=== PATIENT | female | born 1950 | race American Indian/Alaskan Native ===

== ENCOUNTER 2017-02-12 07:45 | Inpatient (IN) | payer MEDICARE ==
[2017-03-07 09:18] VITALS: BMI 32.1
[2017-03-07] MEDS ORDERED: Propofol 10 mg/ml Inj (20 ML) ONE (10:53)
[2017-03-07] MEDS ORDERED: Midazolam 2 MG/2 ML VIAL ONE (10:53)
[2017-03-07] MEDS ORDERED: ceFAZolin IV 2 gm in Dextrose 1 GM/50 ML BAG IVPB ONE (11:02)
[2017-03-07] MEDS ORDERED: Sodium Chloride 0.9% 60 ML IV ONE (11:02)
[2017-03-07] MEDS ORDERED: Bupivacaine Liposomal Inj 20 ml INFIL ONE (11:15)
[2017-03-07] MEDS ORDERED: Bacitracin 150,000 UNIT in Sodium Chloride 0.9% Irrig 3,000 ML IR SCH (11:15)
[2017-03-07] MEDS ORDERED: Lactated Ringer's 1,000 ML IV ONE ×2 (11:25→13:57)
[2017-03-07] MEDS ORDERED: Rocuronium 10 mg/ml (5 ml) ONE ×2 (12:26→13:12)
[2017-03-07 12:51] LABS: FLUID TYPE SYNOVIAL FLUID
[2017-03-07] MEDS ORDERED: Labetalol 25mg/5ml Syringe ONE ×2 (13:12→13:19)
[2017-03-07] MEDS ORDERED: Metoprolol 1 mg/ml Inj IVP ONE (13:12)
[2017-03-07] MEDS ORDERED: White Petrolatum/Mineral Oil Ophth Oint(3.5 gm) ONE (13:12)
[2017-03-07] MEDS ORDERED: Neostigmine Methylsulfate 3mg/3ml Syringe IV ONE (14:30)
[2017-03-07] MEDS: HYDROmorphone 0.5 mg/0.5 ml ISec IVP PRN ×4 (15:24→18:03)
[2017-03-07] MEDS ORDERED: Bupivacaine HCl 0.25% PF (10 ml) Inj ONE (15:31)
--- NOTE | 2017-03-07 15:37 | PCM.SURG1 ---
Surgeon's Initial Post Op Note - Surgeon's Notes Surgeon: Adam Payton MD Service Worker Helper: Arlene Puga PA-C Type of Anesthesia: General Endo, Block Regional Pre-Operative Diagnosis: Right knee. #1 DJD. #2 flexion contracture. #3 synovitis. #4 multiple LB's Operative Findings: Right knee. #1 DJD. #2 flexion contracture. #3 synovitis. #4 multiple LB's Post-Operative Diagnosis: Right knee. #1 DJD. #2 flexion contracture. #3 synovitis. #4 multiple LB's Operation Performed: Right knee Open. #1 Total knee arthroplasty. #2 removal LB's. #3 synovectomy Specimen/Specimens Removed: Specimen= ciro cuts and LB. Complications= none. Tourniquet time= 108 min. Implants= Medacta GMK cemented total knee system: size 4 femur/ size 4 tibia/ 17mm PS poly/ size 1 patella poly button Estimated Blood Loss: EBL {In ML}: 100 Blood Products Given: N/A Drains Used: Hemovac Post-Op Condition: Good Date of Surgery/Procedure: 03/07/17 Time of Surgery/Procedure: 15:38
[2017-03-07 15:43] LABS: CRYSTAL TYPE CalciumPyrophosphate
--- NOTE | 2017-03-07 15:54 | PCM.ANESB7 ---
Adductor Canal Block - Adductor Canal Block Date of Procedure: 03/07/17 Anesthiologist: Lyndon Pre-Procedure Diagnosis: s/p right total knee arthroplasty Post-Procedure Diagnosis: same Procedure Performed: Adductor Canal Block Right - Procedure Adductor Canal Block: The procedure was explained to the patient that it is for the post-operative pain management. Consent was obtained after a thorough discussion with the patient regarding the benefits and possible complications of local anesthetic adductor canal block of the femoral nerve. Standard monitors were applied to the patient. Time-out was held with the PACU nurse to confirm the appropriate block. The patient was placed in supine position with and the operative leg was flexed slightly at the knee and externally rotated as needed, and was kept anatomically stable. The mid-thigh of the right lower extremity was exposed. The ultrasound transducer was then applied transversely along the medial aspect , about midway down the thigh and the femoral artery and vein were identified in appropriate relation with the sartorius muscle. At this time, the femoral nerve was visualized lateral to the femoral artery within the canal. After thorough identification, this area area was prepped with Chloroprep solution. At this point, a #22 gauge Stimuplex 4-inch needle was inserted in-plane in a [id number] orientation, and advanced toward the femoral nerve. Advancement was performed carefully under direct ultrasound visualization. After negative aspiration, 5cc of 0.25% bupivacaine was injected and this was followed with 25 cc of 0.25% Bupivacaine. Negative intermittent aspiration. Under ultrasound guidance the local anesthetics were observed spreading around the femoral nerve. The needle was removed intact and sterile dressing was applied. The patient had stable vital signs, was conscious and in no apparent distress. The patient tolerated the femoral nerve block well with stable vital signs
--- NOTE | 2017-03-07 16:55 | RAD ---
PROCEDURE: Right Knee Radiographs. HISTORY: s/p R total knee replacement COMPARISON: None. FINDINGS: BONES: No acute fracture. JOINTS: Status post right total knee replacement. Surgical drain anteriorly. Anterior soft tissue changes as expected. JOINT EFFUSION: None. OTHER FINDINGS: None. IMPRESSION: Right total knee replacement.
[2017-03-07] MEDS ORDERED: HYDROmorphone 0.5 mg/0.5 ml ISec ONE (18:43)
[2017-03-07] MEDS ORDERED: Dextrose 5%/0.45% NS 1,000 ML IV ONE (19:30)
[2017-03-07] MEDS: Insulin Detemir 100 units/ml Vial (Levemir) SC SCH (22:50)
[2017-03-07] MEDS: Oxycodone/Acetaminophen 5/325 mg Tab PO PRN (22:51)
[2017-03-07] MEDS: Metoprolol Succinate 50 mg XL Tab PO SCH (22:51)
[2017-03-08] MEDS: Oxycodone/Acetaminophen 5/325 mg Tab PO PRN (04:25)
[2017-03-08] MEDS: Dextrose 5%/0.45% NS 1,000 ML IV SCH ×2 (04:31→05:43)
--- NOTE | 2017-03-08 06:04 | OP ---
PROCEDURE DATE: 03/07/2017 PREOPERATIVE DIAGNOSES: Right knee: 1. Degenerative joint disease. 2. 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 3. Synovitis. 4. Multiple loose bodies. 5. Significant loss of range of motion (10 degree to 90 degree flexion arc). POSTOPERATIVE DIAGNOSES: Right knee: 1. Degenerative joint disease. 2. 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 3. Synovitis. 4. Multiple loose bodies. 5. Significant loss of range of motion (10 degree to 90 degree flexion arc). 6. Lateral retinacular patellar contracture. PROCEDURE: Right knee: 1. Total knee arthroplasty. 2. Open removal of loose bodies. 3. Open synovectomy. 4. Open lateral retinacular release. SURGEON: Adam Payton MD. MUD GRINDER: Arlene Puga PA-C. JUSTIFICATION FOR MUD GRINDER: Arlene Puga is a certified physician bookkeeping assistant who skilled surgical services, was an absolute necessity for successful completion of the procedure. He provided skilled surgical assistance with positioning of the patient, positioning of extremity, management of the surgical wynn, retraction of the neurovascular structures, preparation of distal femur and proximal tibia bone surfaces, preparation of patellar bone surface, placement of trial hardware, placement of proper cement technique and placement of final implant hardware including distal femur cemented, proximal tibia cemented, patellar button cemented, and the poly spacer, wound closure, placement and fitting of knee immobilizer. Arlene Puga was present for the entire case and was an absolute necessity for successful completion of the procedure. TYPE OF ANESTHESIA: General endotracheal anesthesia with a postop regional nerve block placement by anesthesia staff in PACU. SPECIMEN: As per hospital protocol, the bony cuts and loose body were sent to the pathology. COMPLICATIONS: None. TOURNIQUET TIME: 108 minutes. IMPLANTS: Medacta, GMK cemented total knee system consisting of size 4 cemented femur/size 4 cemented tibia component/17 mm posterior stabilized polyethylene spacer/size 1 patellar polyethylene cemented button. ESTIMATED BLOOD LOSS: 100 mL. DRAINS: Hemovac drain x1. DISPOSITION: The patient was extubated, transferred to PACU in stable condition and tolerated procedure well. INDICATIONS OF SURGERY: The patient is a 66-year-old female with a past medical history significant for hypertension, hypercholesterolemia, diabetes, coronary artery disease with a history of three vessel CABG in September 2013, presents to the office for the first time under my care on 12/27/2015 with right much worse than left knee pain for many years. She stated that over the past two years, the knee pain has begun progressively worse and she has had multiple episodes of buckling and falling with pain worse at the medial joint line of both knees, but the right knee was significantly worse than the left knee. The right knee was consistently rated between 7 to 9/10 pain. X-rays taken in the office show that she had significant DJD with complete loss of the medial joint line on both knees with bone on bone contact of the medial femoral condyle with the medial tibial plateau. She also had significant osteophytes and multiple loose bodies. Examination in the office revealed that she had at that point in time a 5-degree flexion contracture as well as inability to flex the knee past 90 degrees. Significant tenderness to palpation at the medial joint line with a positive Apley and William with no significant instability. There was also significant crepitans throughout range of motion. We started conservative treatment at that point in time, which included multiple rounds of physical therapy, compound antiinflammatory pain cream, Mobic antiinflammatory medication, Tylenol #3 for severe pain, bracing, multiple rounds of cortisone injection including bilateral knee cortisone mixture injections on 12/27/2015, 08/13/2016, 11/28/2016, with complete resolution of pain in both knees after the administration of the cortisone mixture injection from the local anesthetic. She also underwent a completion of hyaluronic acid injection series two times to bilateral knees completed in 01/30/2016, the first round and the second round of four injections once a week for four weeks of Orthovisc. Hyaluronic acid were completed on 09/24/2016 with great improvement in bilateral knee pain. We had significant improvement in her left knee pain that was markedly improved with conservative treatment and now rated 2/10. The patient also had significant weight loss over that period of time. The right knee continued to ail her and she was starting to state that she was having difficulty with ADLs and basic ambulation. She will have any pain with any activity and any flexion past 90 degrees or an attempt at full extension. She stated that overall after the hyaluronic acid injections wore off and the cortisone injections would wear off, she will return to the pretreatment level of pain in her right knee. She stated that physical therapy made her pain worse and she was having difficulty with pretty much any activity or any ambulation as she was limping and had the 5 degree flexion contracture. The flexion contracture did progress and worsened and now became a 10 degree flexion contracture with range of motion limited from 10 degrees to 90 degrees flexion arc. The left knee also developed a 5 degree flexion contracture. Finally, after failing one year of conservative treatment under my care, although we had multiple discussions about the benefits of a total knee replacement during her treatment, she finally accepted to undergo the treatment at her December 2016 visit. She was indicated for right knee total knee arthroplasty. The risks, benefits, and alternatives of the procedure was discussed at length with the patient, but the risks include not limited to infection, neurovascular damage, need for revision surgery, periprosthetic fracture, failure of implants and failure of polyethylene spacer, development of chronic pain and disability, development of blood clots including DVT and PE, need for further surgery, inability to return to presurgical level of activity, anesthesia reactions including , cardiopulmonary perioperative compromise. After answering all of her questions, she stated that she understood the risks and wish to proceed with surgery. The plan was to undergo a right knee total knee arthroplasty and after six months of successful recovery, we would consider undergoing a left knee total knee arthroplasty if the pain was severe and develop. We also discussed that there would be an apparent leg length discrepancy as the left knee had a 5 degree flexion contracture that was progressively worsening and the right knee postoperatively would be able to obtain full extension and she may feel that there is an apparent leg length discrepancy, which we can treat with a heel insert or a footwear insert to accommodate postoperatively between the two knee replacements. She was referred to a primary care physician, Dr. Karl Ratliff for PAT and medical clearance and the procedure was scheduled for 03/07/2017. DESCRIPTION OF PROCEDURE: The patient was identified in the preoperative holding area and the right knee was marked for surgery. Once again as described above; the risks, benefits, and alternatives of the procedure were discussed at length with the patient and informed consent was obtained. After brief discussion with anesthesia staff, perioperative IV antibiotics in the form of 2 g of Ancef were administered and the patient was taken to the operating room and placed on well-padded operating table for all bony prominence , superficial neurovascular structures well-padded. An initial time-out was done with the surgeon, anesthesia staff, and OR staff and all are in agreement with the patient, procedure to be done, and extremity to be operated on. General anesthesia was administered without difficulty or complication. Examination under anesthesia was then carried out. EXAMINATION UNDER ANESTHESIA: Right knee with significant crepitans throughout range of motion, range of motion is severely limited from 10 degrees to 90 degree flexion arc with a 10 degree flexion contracture. No significant instability with negative anterior drawer, negative posterior drawer, negative Ashley, negative reverse locking, negative pivot shift, negative opening to medial and lateral joint at 0 to 30 degrees of varus and valgus stress. CONTINUATION OF PROCEDURE: The right lower extremity was prepped and draped in the standard sterile fashion after a tourniquet was placed high on the right thigh. A final time-out was done with the surgeon, anesthesia staff, and OR staff, and all are in agreement with the patient, procedure to be done and extremity to be operated on. The right lower extremity was then prepped and draped in a standard sterile fashion. A medial parapatellar approach was then placed for this procedure. The limb was exsanguinated and the tourniquet was then inflated to 300 mmHg for a total tourniquet time of 108 minutes. A medial parapatellar approach was carried out with incision through a skin down subcutaneous tissue, down to the level of the retinaculum, well maintaining good hemostasis. The incision started at 3 fingerbreadths above the level of the superior pole of the patellar and extended down to the tibial tuberosity with slight medial placement to avoid kneeling pain after recovery. Once the medial retinaculum was identified and the quadriceps tendon and patellar tendon were identified and developed, a medial parapatellar arthrotomy was then carried out starting at the medial aspect of the quadriceps tendon while going in line with the quadriceps fibers down to the superior pole of the patella around the medial aspect of the patella down to the medial aspect of the patellar tendon to the level of the tibial tuberosity. This explores the underlying joint and bloody synovial fluid was expressed from the joint. There was low suspicion of an active infection, but to be safe a cell count and gram-stain was sent as a stat study. The cell count and gram-stain both returned negative for infection prior to placement of implants. We continue with the procedure performing an extensive synovectomy as was appearance from the bloody synovial fluid, there was significant anterior hypertrophic synovitis throughout the anterior aspect of the knee extending to the medial and lateral gutters in the suprapatellar pouch with a hypertrophic fat-pad with significant inflammation as well. With the use of the Bovie, we will maintain good hemostasis and extensive open synovectomy was carried out allow exposure for the preparation of the distal femur patella and proximal tibia. Decision was made to perform the patella first as it had extensive osteophytes and there was a significant deformity to the patella as well. With the use of the Standard [employer] patellar guide, a 20 mm of bone stalk were retained as the patellar cut was carried out as the guide was secured into position. Chamfer was used and indeed globally there was 20 mm of bone stalk left at the patella throughout all measurements at the lateral and medial aspect, superior and inferior aspects as well. It was noted at that point in time,it was thought that there was a lateral retinacular contracture, but this would be addressed later. Attention was then turned towards preparation of the distal femur with the retractors placed in position. The contact points for the brad custom cutting blocks were developed as per the 3D model and the custom cutting block was then pinned into position and the distal femoral cut was carried out. The 5 to 10 degree flexion contracture was brought into the custom cutting block, but the plan was if not to have despite after placement of the trial that we would revise the distal femoral cut to allow for full extension. Once the distal cut was made, the 4-in-1 guide was then placed with a 3 degree of external rotation down into the guide. The anterior cuts were made, the posterior cuts were made followed by the anterior and posterior chamfer cuts. The 4-in-1 guide was removed and a trial size 4 implant was impacted into position and found to fit perfectly. The trial implant was removed and attention was then turned towards the proximal tibia preparation. The custom tibial cutting guide was secured into position after the contact points were debrided of overlying cartilage. The cutting guide was pinned into position and alignment was checked and was just found to be in neutral alignment to the first webspace. The proximal tibial cut was carried out successfully as planned. The proximal tibia preparation was then completed with the wedge osteotome and the proximal reamer. Trial was then carried out with a size 4 tibia with a 14 mm poly spacer and a size 4 distal femur all in position with good soft tissue balancing achieved and full range of motion obtained. The trial implants were removed and care was taken to remove the posterior osteophytes as well as the multiple loose bodies that were found in the posterior capsule. Once this was done to satisfaction and the multiple loose bodies were removed as well as the posterior osteophytes, copious irrigation was carried out and the final patellar preparation was carried out with placement of the pig holes and the final distal femur preparation was carried out for placement of the box for the posterior stabilized polyethylene spacer and posterior stabilized distal femur. Once this was all done to satisfaction, we were happy with the soft tissue balancing as well as the bony cuts and all are preparations. The [employer] [place] cement was then prepared. The cement was then mixed after the bony surfaces were copiously irrigated and padded dry. Proper cement technique was then utilized and the attention was turned towards cementing the proximal tibia first. The proximal tibia implant was then cemented and impacted into good position. Attention was then turned towards cementing the distal femur and a size 4 distal femur was impacted and cemented into proper position. All excess cement had been removed from stack the implants. Attention was then turned towards placement of the trial poly which was placed into position and axial load was placed on the knee in full extension. The patellar button was then cemented into position and compressed with the Standard [employer]a patellar handle, secured into position. Axial compression was then applied and all the excess cement fragments were removed and the knee was copiously irrigated until the cement hardened. The tourniquet was then deflated with a total tourniquet time of 108 minutes and good hemostasis was achieved. Local anesthetic was placed throughout the posterior capsule and quadriceps and all the surrounding soft tissue medially, laterally, superiorly and inferiorly. Once the local anesthetic was placed, especially at the posterior capsule attention was then turned towards placing and selecting the final polyethylene spacer. A 70 mm trial followed by the full extension and good stability throughout full range of motion. A final 17 mm posterior stabilized polyethylene spacer was then secured into the position and the knee was tested again and found to be stable throughout arc of range of motion with full extension and flexion achieved. As stated before there was something concern about the lateral retinaculum of the patella being slightly contracted and an open lateral retinacular release was carried out, which returned stability to the patella throughout arc of range of motion without any lateral subluxation. Once this was carried out to satisfaction, copious irrigation was carried out and good hemostasis was achieved and a Hemovac drain was placed. The medial parapatellar arthrotomy was then reapproximated and secured with alternating #2 Fiber wire suture and #1 Vicryl suture at the quadriceps tendon, the medial retinaculum and the patellar tendon. Once the fascial closure was complete, subcutaneous tissue was reapproximated with 2-0 Vicryl suture followed by love for skin. Sterile dressings were applied and layer sterile cast padding was placed from the toes up to the superior thigh followed by last compressive Jules wrap from the toes up to the superior thigh. The knee was then fitted and placed in a knee immobilizer and the Hemovac was secured. The patient was then extubated and transferred to PACU in stable condition and tolerated the procedure well. DISPOSITION: The patient will remain as an inpatient until she is medically stable for discharge to rehab or home with services. She will work with physical therapy, case management, and social work job titles to determine whether it is optimal for her. She will be weightbearing as tolerated to the right lower extremity with no restrictions. She will work with physical therapy to work on range of motion strengthening and stretching and initially ambulate with the knee immobilizer when up and walking around. She will receive adequate pain control. She will be restarted on her Plavix, which she stopped for one week after consulting her duplicate maker and medical doctor prior to surgery. She will be on Lovenox 40 mg once daily as DVT prophylaxis starting postoperative day #1. I will monitor her progress as an inpatient and we will determine the best course of action. Once she is discharged from the hospital, she will follow up in the office at [facility] within one week. Adam Payton MD
[2017-03-08] MEDS: (Novolog Mix 70/30) Insulin Aspart/Insulin Aspar 100 units/ml SC SCH ×4 (08:23→17:21)
[2017-03-08 08:55] LABS: CHLORIDE 103 mmol/L (98-107); POTASSIUM 3.7 mmol/L (3.6-5.2); SODIUM 137 mmol/L (132-148)
[2017-03-08 08:58] LABS: BASO % 0.4 % (0.0-2.0); BLOOD UREA NITROGEN 6 mg/dL (7-17); CALCIUM 8.4 mg/dl (8.6-10.4); CARBON DIOXIDE 24 mmol/L (22-30); EOS % 0.3 % (0.0-4.0); GFR AFRICAN-AMERICAN > 60; GLUCOSE,RANDOM 187 mg/dL (65-105); HEMATOCRIT 29.9 % (34.0-47.0); LYMPH # 2.4 K/uL (1.0-4.3); MEAN CELL VOLUME 97.3 fL (81.0-99.0); MEAN CORPUSCULAR HEMOGLOBIN 32.6 pg (27.0-31.0); MEAN CORPUSCULAR HGB CONC 33.5 g/dL (33.0-37.0); MEAN PLATELET VOLUME 11.6 fL (7.2-11.7); MONO # 1.2 K/uL (0.0-0.8); MONO % 10.2 % (0.0-10.0); RED CELL DISTRIBUTION WIDTH 13.7 % (11.5-14.5); WHITE BLOOD COUNT 11.9 K/uL (4.8-10.8)
--- NOTE | 2017-03-08 09:54 | CP.PCM.CON ---
History of Present Illness - History of Present Illness History of Present Illness: Patient seen/examined. full consult to follow. patient has a history of CABG 2013 at [facility] [place] routine cardiology follow up is Dr. Henry. She is doing well post op. will continue current management. Past Patient History - Past Medical History & Family History Past Medical History?: Yes - Past Social History Smoking Status: Light Smoker < 10 Cigarettes Daily - CARDIAC Hx Cardiac Disorders: Yes Hx Hypercholesterolemia: Yes Hx Hypertension: Yes - PULMONARY Hx Respiratory Disorders: No - NEUROLOGICAL Hx Neurological Disorder: No - HEENT Hx HEENT Problems: Yes Hx Cataracts: Yes - RENAL Hx Chronic Kidney Disease: No - ENDOCRINE/METABOLIC Hx Diabetes Mellitus Type 2: Yes - HEMATOLOGICAL/ONCOLOGICAL Hx Blood Disorders: No - INTEGUMENTARY Hx Dermatological Problems: No - MUSCULOSKELETAL/RHEUMATOLOGICAL Hx Arthritis: Yes - GASTROINTESTINAL Hx Gastrointestinal Disorders: Yes Hx Hemorrhoids: Yes - GENITOURINARY/GYNECOLOGICAL Hx Genitourinary Disorders: No - PSYCHIATRIC Hx Psychophysiologic Disorder: No Hx Substance Use: No - SURGICAL HISTORY Hx Surgeries: Yes Hx Coronary Artery Bypass Graft: Yes Hx Open Heart Surgery: Yes Other/Comment: LEFT KNEE CYST REMOVED, RIGHT THIGH BOIL I & D - ANESTHESIA Hx Anesthesia: Yes Hx Anesthesia Reactions: No Hx Malignant Hyperthermia: No Has any member of the family had a problem w/ anesthesia?: No Meds Allergies/Adverse Reactions: Allergies Allergy/AdvReac Type Severity Reaction Status Date / Time No Known Allergies Allergy Verified 12/13/14 11:13 - Medications Medications: Current Medications Clopidogrel Bisulfate (Plavix) 75 mg PO DAILY [facility] Enoxaparin Sodium (Lovenox) 40 mg SC DAILY [facility] Dextrose/Sodium Chloride (Dextrose 5%/0.45% Ns 1000 Ml) 1,000 mls @ 75 mls/hr IV .[id number] [facility] Last Admin: 03/08/17 05:43 Dose: Not Given Insulin Aspart (Novolog Mix 70/30 (70/30 Units/Ml)) 10 units SC TID [facility] Last Admin: 03/08/17 08:23 Dose: Not Given Insulin Detemir (Levemir) 15 unit SC HS [facility] Last Admin: 03/07/17 22:50 Dose: 15 unit Metformin HCl (Glucophage) 1,000 mg PO BID [facility] Last Admin: 03/07/17 20:00 Dose: Not Given Metoprolol Succinate (Toprol Xl) 50 mg PO DAILY [facility] Last Admin: 03/07/17 22:51 Dose: 50 mg Ondansetron HCl (Zofran Inj) 4 mg IVP Q6 PRN PRN Reason: Nausea/Vomiting Oxycodone/Acetaminophen (Percocet 5/325 Mg Tab) 2 tab PO Q4H PRN PRN Reason: Pain, severe (8-10) Stop: 03/10/17 12:07 Last Admin: 03/08/17 04:25 Dose: 2 tab Results - Vital Signs Recent Vital Signs: Last Vital Signs Temp 98.5 F 03/08/17 08:00 Pulse 106 H 03/08/17 08:00 Resp 20 03/08/17 08:00 BP 144/79 03/08/17 08:00 Pulse Ox 98 03/08/17 08:00 - Labs Result Diagrams: 03/08/17 08:34 03/08/17 08:34 Labs: Laboratory Results - last 24 hr 03/07/17 03/07/17 03/07/17 08:49 12:49 14:47 WBC RBC Hgb Hct MCV MCH MCHC RDW Plt Count MPV Neut % (Auto) Lymph % (Auto) [place] % (Auto) Eos % (Auto) Baso % (Auto) Neut # Lymph # [place] # Eos # Baso # PT INR APTT Sodium Potassium Chloride Carbon Dioxide Anion Gap BUN Creatinine Est GFR ( Amer) Est GFR (Non-Af Amer) POC Glucose (mg/dL) Random Glucose Calcium Fluid Type Synovial fluid Fluid Crystals Positive H Synovial WBC 5679.0 H Synovial RBC 594653.0 H Synovial Neutrophils 51.0 H Synovial Lymphocytes 46.0 H Synov Monos/Macrophage 3 H Synovial Crystal Type Calciumpyrophosphate Synovial Fluid Comment TEST NOT PERFORMED Antibody Screen Negative 03/07/17 03/07/17 03/08/17 16:57 20:55 06:20 WBC RBC Hgb Hct MCV MCH MCHC RDW Plt Count MPV Neut % (Auto) Lymph % (Auto) [place] % (Auto) Eos % (Auto) Baso % (Auto) Neut # Lymph # [place] # Eos # Baso # PT INR APTT Sodium Potassium Chloride Carbon Dioxide Anion Gap BUN Creatinine Est GFR ( Amer) Est GFR (Non-Af Amer) POC Glucose (mg/dL) 296 H 254 H 227 H Random Glucose Calcium Fluid Type Fluid Crystals Synovial WBC Synovial RBC Synovial Neutrophils Synovial Lymphocytes Synov Monos/Macrophage Synovial Crystal Type Synovial Fluid Comment Antibody Screen 03/08/17 03/08/17 03/08/17 08:34 08:34 08:34 WBC 11.9 H RBC 3.07 L Hgb 10.0 L Hct 29.9 L MCV 97.3 MCH 32.6 H MCHC 33.5 RDW 13.7 Plt Count 116 L MPV 11.6 Neut % (Auto) 69.1 Lymph % (Auto) 20.0 [place] % (Auto) 10.2 H Eos % (Auto) 0.3 Baso % (Auto) 0.4 Neut # 8.2 H Lymph # 2.4 [place] # 1.2 H Eos # 0.0 Baso # 0.0 PT 11.8 INR 1.0 APTT 25 Sodium 137 Potassium 3.7 Chloride 103 Carbon Dioxide 24 Anion Gap 14 BUN 6 L Creatinine 0.6 L Est GFR ( Amer) > 60 Est GFR (Non-Af Amer) > 60 POC Glucose (mg/dL) Random Glucose 187 H Calcium 8.4 L Fluid Type Fluid Crystals Synovial WBC Synovial RBC Synovial Neutrophils Synovial Lymphocytes Synov Monos/Macrophage Synovial Crystal Type Synovial Fluid Comment Antibody Screen
--- NOTE | 2017-03-08 09:55 | CP.PCM.CON ---
History of Present Illness - History of Present Illness History of Present Illness: I was asked to see patient by Dr. Chaparro Marquez. Patient is a 66 year old female with PMH HTN, CAD s/p CABG, hypercholesterolemia who is s/p TKR. Patient had [place] [facility] [place], and has routine follow up with Dr. Darrell Henry. The patient had preoperative cardiovascular evaluation with Dr. Henry, and has no current angina. The patient underwent successful TKR. She denies dyspnea. Review of Systems - Constitutional Constitutional: absent: As Per HPI, Anorexia, Chills, Daytime Sleepiness, Excessive Sweating, Fatigue, Fever, Frequent Falls, Headache, Increased Appetite , Lethargy, Malaise, Night Sweats, Snoring, Sleep Apnea, Weight Gain, Weight Loss, Weakness, Other - EENT Eyes: absent: As Per HPI, Blind Spots, Blurred Vision, Change in Vision, Decreased Night Vision, Diplopia, Discharge, Dry Eye, Exophthalmos, Floaters, Irritation, Itchy Eyes, Loss of Peripheral Vision, Pain, Photophobia, Requires Corrective Lenses, Sees Flashes, Spots in Vision, Tunnel Vision, Other Visual Disturbances, Loss of Vision, Other Ears: absent: As Per HPI, Decreased Hearing, Ear Discharge, Ear Pain, Tinnitus, Abnormal Hearing, Disequilibrium, Dizziness, Other Nose/Mouth/Throat: absent: As Per HPI, Epistaxis, Nasal Congestion, Nasal Discharge, Nasal Obstruction, Nasal Trauma, Nose Pain, Post Nasal Drip, Sinus Pain, Sinus Pressure, Bleeding Gums, Change in Voice, Dental Pain, Dry Mouth, Dysphagia, Halitosis, Hoarsness, Lip Swelling, Mouth Lesions, Mouth Pain, Odynophagia, Sore Throat, Throat Swelling, Tongue Swelling, Facial Pain, Neck Pain, Neck Mass, Other - Cardiovascular Cardiovascular: absent: As Per HPI, Acrocyanosis, Chest Pain, Chest Pain at Rest , Chest Pain with Activity, Claudication, Diaphoresis, Dyspnea, Dyspnea on Exertion, Edema, Irregular Heart Rhythm, Pain Radiating to Arm/Neck/Jaw, Leg Edema, Leg Ulcers, Lightheadedness, Orthopnea, Palpitations, Paroxysmal Nocturnal Dyspnea, Pedal Edema, Radiating Pain, Rapid Heart Rate, Slow Heart Rate, Syncope, Other - Respiratory Respiratory: absent: As Per HPI, Cough, Dyspnea, Hemoptysis, Dyspnea on Exertion , Wheezing, Snoring, Stridor, Pain on Inspiration, Chest Congestion, Excessive Mucous Production, Change in Mucous Color, Pain with Coughing, Other - Gastrointestinal Gastrointestinal: absent: As Per HPI, Abdominal Pain, Belching, Bloating, Change in Bowel Habits, Change in Stool Character, Coffee Ground Emesis, Constipation, Cramping, Diarrhea, Dyspepsia, Dysphagia, Early Satiety, Excessive Flatus, Fecal Incontinence, Heartburn, Hematemesis, Hematochezia, Loose Stools, Melena, Nausea, Odynophagia, Temesmus, Vomiting, Other - Genitourinary Genitourinary: absent: As Per HPI, Change in Urinary Stream, Difficulty Urinating, Dysuria, Flank Pain, Hematuria, Pyuria, Nocturia, Urinary Incontinence, Urinary Frequency, Urinary Hesitance, Urinary Urgency, Voiding Freq/Small Amts, Freq UTI, Hx Renal/Bladder Calculi, Hx /Renal Surgery, Bladder Distension, Other - Musculoskeletal Musculoskeletal: Radiating Pain into Limb - Integumentary Integumentary: absent: As Per HPI, Acne, Alopecia, Bleeding Lesions, Change in Hair, Change in Nails, Change in Pigmentation, Changing Lesions, Dry Skin, Erythema, Furuncle, Hirsutism, Lesions, New Lesions, Non-Healing Lesions, Photosensitivity, Pruritus, Rash, Skin Pain, Skin Ulcer, Sores, Striae, Swelling , Unusual Bruising, Wounds, Jaundice, Other - Neurological Neurological: absent: As Per HPI, Abnormal Gait, Abnormal Hearing, Abnormal Movements, Abnormal Speech, Behavioral Changes, Burning Sensations, Confusion, Convulsions, Disequilibrium, Dizziness, Numbness, Focal Weakness, Frequent Falls , Headaches, Lack of Coordination, Loss of Vision, Memory Loss, Paresthesias, Radicular Pain, Restless Legs, Sensory Deficit, Syncope, Tingling, Tremor, Vertigo, Weakness, Other Visual Disturbances, Other - Psychiatric Psychiatric: absent: As Per HPI, Abnormal Sleep Pattern, Anhedonia, Anxiety, Auditory Hallucinations, Behavioral Changes, Change in Appetite, Change in Libido, Confusion, Depression, Difficulty Concentrating, Hallucinations, Homicidal Ideation, Hopelessness, Irritability, Memory Loss, Mood Swings, Panic Attacks, Paranoia, Suicidal Ideation, Visual Hallucinations, Tactile Hallucinations, Other - Endocrine Endocrine: absent: As Per HPI, Change in Body Appearance, Change in Libido, Cold Intolorance, Deepening of Voice, Excessive Sweating, Fatigue, Flushing, Heat Intolorance, Increase in Ring/Shoe/Hat Size, Palpitations, Polydipsia, Polyphagia, Polyuria, Other - Hematologic/Lymphatic Hematologic: absent: As Per HPI, Easy Bleeding, Easy Bruising, Lymphadenopathy, Other Past Patient History - Past Medical History & Family History Past Medical History?: Yes - Past Social History Smoking Status: Light Smoker < 10 Cigarettes Daily - CARDIAC Hx Cardiac Disorders: Yes Hx Hypercholesterolemia: Yes Hx Hypertension: Yes - PULMONARY Hx Respiratory Disorders: No - NEUROLOGICAL Hx Neurological Disorder: No - HEENT Hx HEENT Problems: Yes Hx Cataracts: Yes - RENAL Hx Chronic Kidney Disease: No - ENDOCRINE/METABOLIC Hx Diabetes Mellitus Type 2: Yes - HEMATOLOGICAL/ONCOLOGICAL Hx Blood Disorders: No - INTEGUMENTARY Hx Dermatological Problems: No - MUSCULOSKELETAL/RHEUMATOLOGICAL Hx Arthritis: Yes - GASTROINTESTINAL Hx Gastrointestinal Disorders: Yes Hx Hemorrhoids: Yes - GENITOURINARY/GYNECOLOGICAL Hx Genitourinary Disorders: No - PSYCHIATRIC Hx Psychophysiologic Disorder: No Hx Substance Use: No - SURGICAL HISTORY Hx Surgeries: Yes Hx Coronary Artery Bypass Graft: Yes Hx Open Heart Surgery: Yes Other/Comment: LEFT KNEE CYST REMOVED, RIGHT THIGH BOIL I & D - ANESTHESIA Hx Anesthesia: Yes Hx Anesthesia Reactions: No Hx Malignant Hyperthermia: No Has any member of the family had a problem w/ anesthesia?: No Meds Allergies/Adverse Reactions: Allergies Allergy/AdvReac Type Severity Reaction Status Date / Time No Known Allergies Allergy Verified 12/13/14 11:13 - Medications Medications: Current Medications Clopidogrel Bisulfate (Plavix) 75 mg PO DAILY [facility] Enoxaparin Sodium (Lovenox) 40 mg SC DAILY [facility] Dextrose/Sodium Chloride (Dextrose 5%/0.45% Ns 1000 Ml) 1,000 mls @ 75 mls/hr IV .[id number] [facility] Last Admin: 03/08/17 05:43 Dose: Not Given Insulin Aspart (Novolog Mix 70/30 (70/30 Units/Ml)) 10 units SC TID [facility] Last Admin: 03/08/17 08:23 Dose: Not Given Insulin Detemir (Levemir) 15 unit SC HS [facility] Last Admin: 03/07/17 22:50 Dose: 15 unit Metformin HCl (Glucophage) 1,000 mg PO BID [facility] Last Admin: 03/07/17 20:00 Dose: Not Given Metoprolol Succinate (Toprol Xl) 50 mg PO DAILY [facility] Last Admin: 03/07/17 22:51 Dose: 50 mg Ondansetron HCl (Zofran Inj) 4 mg IVP Q6 PRN PRN Reason: Nausea/Vomiting Oxycodone/Acetaminophen (Percocet 5/325 Mg Tab) 2 tab PO Q4H PRN PRN Reason: Pain, severe (8-10) Stop: 03/10/17 12:07 Last Admin: 03/08/17 04:25 Dose: 2 tab Physical Exam - Constitutional Appears: Non-toxic - Head Exam Head Exam: NORMAL INSPECTION - Eye Exam Eye Exam: Normal appearance - ENT Exam ENT Exam: Mucous Membranes Moist - Neck Exam Neck exam: Positive for: Full Rom - Respiratory Exam Respiratory Exam: NORMAL BREATHING PATTERN - Cardiovascular Exam Cardiovascular Exam: REGULAR RHYTHM - GI/Abdominal Exam GI & Abdominal Exam: Normal Bowel Sounds - Rectal Exam Rectal Exam: Deferred - Extremities Exam Additional comments: knee immobilized, dressing intact - Back Exam Back exam: absent: CVA tenderness (L), CVA tenderness (R), FULL ROM, muscle spasm, NORMAL INSPECTION, paraspinal tenderness, rash noted, tenderness, vertebral tenderness - Neurological Exam Neurological exam: Alert, Oriented x3 - Psychiatric Exam Psychiatric exam: Normal Affect - Skin Skin Exam: Normal Color Results - Vital Signs Recent Vital Signs: Last Vital Signs Temp 98.5 F 03/08/17 08:00 Pulse 106 H 03/08/17 08:00 Resp 20 03/08/17 08:00 BP 144/79 03/08/17 08:00 Pulse Ox 98 03/08/17 08:00 - Labs Result Diagrams: 03/09/17 09:37 03/09/17 09:37 Labs: Laboratory Results - last 24 hr 03/07/17 03/07/17 03/07/17 08:49 12:49 14:47 WBC RBC Hgb Hct MCV MCH MCHC RDW Plt Count MPV Neut % (Auto) Lymph % (Auto) [place] % (Auto) Eos % (Auto) Baso % (Auto) Neut # Lymph # [place] # Eos # Baso # PT INR APTT Sodium Potassium Chloride Carbon Dioxide Anion Gap BUN Creatinine Est GFR ( Amer) Est GFR (Non-Af Amer) POC Glucose (mg/dL) Random Glucose Calcium Fluid Type Synovial fluid Fluid Crystals Positive H Synovial WBC 5679.0 H Synovial RBC 958937.0 H Synovial Neutrophils 51.0 H Synovial Lymphocytes 46.0 H Synov Monos/Macrophage 3 H Synovial Crystal Type Calciumpyrophosphate Synovial Fluid Comment TEST NOT PERFORMED Antibody Screen Negative 03/07/17 03/07/17 03/08/17 16:57 20:55 06:20 WBC RBC Hgb Hct MCV MCH MCHC RDW Plt Count MPV Neut % (Auto) Lymph % (Auto) [place] % (Auto) Eos % (Auto) Baso % (Auto) Neut # Lymph # [place] # Eos # Baso # PT INR APTT Sodium Potassium Chloride Carbon Dioxide Anion Gap BUN Creatinine Est GFR ( Amer) Est GFR (Non-Af Amer) POC Glucose (mg/dL) 296 H 254 H 227 H Random Glucose Calcium Fluid Type Fluid Crystals Synovial WBC Synovial RBC Synovial Neutrophils Synovial Lymphocytes Synov Monos/Macrophage Synovial Crystal Type Synovial Fluid Comment Antibody Screen 03/08/17 03/08/17 03/08/17 08:34 08:34 08:34 WBC 11.9 H RBC 3.07 L Hgb 10.0 L Hct 29.9 L MCV 97.3 MCH 32.6 H MCHC 33.5 RDW 13.7 Plt Count 116 L MPV 11.6 Neut % (Auto) 69.1 Lymph % (Auto) 20.0 [place] % (Auto) 10.2 H Eos % (Auto) 0.3 Baso % (Auto) 0.4 Neut # 8.2 H Lymph # 2.4 [place] # 1.2 H Eos # 0.0 Baso # 0.0 PT 11.8 INR 1.0 APTT 25 Sodium 137 Potassium 3.7 Chloride 103 Carbon Dioxide 24 Anion Gap 14 BUN 6 L Creatinine 0.6 L Est GFR ( Amer) > 60 Est GFR (Non-Af Amer) > 60 POC Glucose (mg/dL) Random Glucose 187 H Calcium 8.4 L Fluid Type Fluid Crystals Synovial WBC Synovial RBC Synovial Neutrophils Synovial Lymphocytes Synov Monos/Macrophage Synovial Crystal Type Synovial Fluid Comment Antibody Screen - EKG Data EKG Interpreted by: Myself Assessment & Plan (1) CAD (coronary artery disease) Assessment and Plan: no post operative cardiovascular events. maintain medical therapy. patient to continue follow up with Dr. Henry Status: Acute (2) HTN (hypertension) Assessment and Plan: blood pressure is controlled. Status: Acute
[2017-03-08] MEDS: Metoprolol Succinate 50 mg XL Tab PO SCH (10:58)
[2017-03-08] MEDS: Enoxaparin 40 mg Syringe SC SCH (10:58)
--- NOTE | 2017-03-08 15:27 | CP.PCM.HP ---
Past Patient History - Past Medical History & Family History Past Medical History?: Yes - Past Social History Smoking Status: Light Smoker < 10 Cigarettes Daily - CARDIAC Hx Cardiac Disorders: Yes Hx Hypercholesterolemia: Yes Hx Hypertension: Yes - PULMONARY Hx Respiratory Disorders: No - NEUROLOGICAL Hx Neurological Disorder: No - HEENT Hx HEENT Problems: Yes Hx Cataracts: Yes - RENAL Hx Chronic Kidney Disease: No - ENDOCRINE/METABOLIC Hx Diabetes Mellitus Type 2: Yes - HEMATOLOGICAL/ONCOLOGICAL Hx Blood Disorders: No - INTEGUMENTARY Hx Dermatological Problems: No - MUSCULOSKELETAL/RHEUMATOLOGICAL Hx Arthritis: Yes - GASTROINTESTINAL Hx Gastrointestinal Disorders: Yes Hx Hemorrhoids: Yes - GENITOURINARY/GYNECOLOGICAL Hx Genitourinary Disorders: No - PSYCHIATRIC Hx Psychophysiologic Disorder: No Hx Substance Use: No - SURGICAL HISTORY Hx Surgeries: Yes Hx Coronary Artery Bypass Graft: Yes Hx Open Heart Surgery: Yes Other/Comment: LEFT KNEE CYST REMOVED, RIGHT THIGH BOIL I & D - ANESTHESIA Hx Anesthesia: Yes Hx Anesthesia Reactions: No Hx Malignant Hyperthermia: No Has any member of the family had a problem w/ anesthesia?: No Meds Allergies/Adverse Reactions: Allergies Allergy/AdvReac Type Severity Reaction Status Date / Time No Known Allergies Allergy Verified 12/13/14 11:13 Physical Exam - Constitutional Appears: Well - Head Exam Head Exam: ATRAUMATIC, NORMAL INSPECTION, NORMOCEPHALIC - Eye Exam Eye Exam: EOMI, Normal appearance, PERRL Pupil Exam: NORMAL ACCOMODATION, PERRL - ENT Exam ENT Exam: Mucous Membranes Moist, Normal Exam - Neck Exam Neck exam: Positive for: Normal Inspection - Respiratory Exam Respiratory Exam: Decreased Breath Sounds - Cardiovascular Exam Cardiovascular Exam: REGULAR RHYTHM, +S1, +S2 - GI/Abdominal Exam GI & Abdominal Exam: Diminished Bowel Sounds, Soft - Rectal Exam Rectal Exam: Deferred Results - Vital Signs Recent Vital Signs: Last Vital Signs Temp 97.5 F L 03/08/17 10:57 Pulse 94 H 03/08/17 13:02 Resp 100 H 03/08/17 13:00 BP 136/79 03/08/17 13:02 Pulse Ox 96 03/08/17 10:57 - Labs Result Diagrams: 03/08/17 08:34 03/08/17 08:34 Labs: Laboratory Results - last 24 hr 03/07/17 03/07/17 03/07/17 14:47 16:57 20:55 WBC RBC Hgb Hct MCV MCH MCHC RDW Plt Count MPV Neut % (Auto) Lymph % (Auto) [place] % (Auto) Eos % (Auto) Baso % (Auto) Neut # Lymph # [place] # Eos # Baso # Differential Comment PT INR APTT Sodium Potassium Chloride Carbon Dioxide Anion Gap BUN Creatinine Est GFR ( Amer) Est GFR (Non-Af Amer) POC Glucose (mg/dL) 296 H 254 H Random Glucose Calcium Fluid Crystals Positive H Synovial Crystal Type Calciumpyrophosphate 03/08/17 03/08/17 03/08/17 06:20 08:34 08:34 WBC RBC Hgb Hct MCV MCH MCHC RDW Plt Count MPV Neut % (Auto) Lymph % (Auto) [place] % (Auto) Eos % (Auto) Baso % (Auto) Neut # Lymph # [place] # Eos # Baso # Differential Comment PT 11.8 INR 1.0 APTT 25 Sodium 137 Potassium 3.7 Chloride 103 Carbon Dioxide 24 Anion Gap 14 BUN 6 L Creatinine 0.6 L Est GFR ( Amer) > 60 Est GFR (Non-Af Amer) > 60 POC Glucose (mg/dL) 227 H Random Glucose 187 H Calcium 8.4 L Fluid Crystals Synovial Crystal Type 03/08/17 03/08/17 08:34 12:20 WBC 11.9 H RBC 3.07 L Hgb 10.0 L Hct 29.9 L MCV 97.3 MCH 32.6 H MCHC 33.5 RDW 13.7 Plt Count 116 L MPV 11.6 Neut % (Auto) 69.1 Lymph % (Auto) 20.0 [place] % (Auto) 10.2 H Eos % (Auto) 0.3 Baso % (Auto) 0.4 Neut # 8.2 H Lymph # 2.4 [place] # 1.2 H Eos # 0.0 Baso # 0.0 Differential Comment PT INR APTT Sodium Potassium Chloride Carbon Dioxide Anion Gap BUN Creatinine Est GFR ( Amer) Est GFR (Non-Af Amer) POC Glucose (mg/dL) 201 H Random Glucose Calcium Fluid Crystals Synovial Crystal Type
[2017-03-08] MEDS: Insulin Detemir 100 units/ml Vial (Levemir) SC SCH (21:37)
[2017-03-09] MEDS: Enoxaparin 40 mg Syringe SC SCH (09:09)
[2017-03-09] MEDS: Metoprolol Succinate 50 mg XL Tab PO SCH (09:09)
[2017-03-09] MEDS: (Novolog Mix 70/30) Insulin Aspart/Insulin Aspar 100 units/ml SC SCH ×3 (09:15→17:38)
[2017-03-09 09:41] LABS: BASO # 0.1 K/uL (0.0-0.2); BASO % 0.7 % (0.0-2.0); EOS # 0.3 K/uL (0.0-0.7); EOS % 1.9 % (0.0-4.0); HEMATOCRIT 32.3 % (34.0-47.0); LYMPH % 14.9 % (20.0-40.0); MEAN CELL VOLUME 96.9 fL (81.0-99.0); MEAN CORPUSCULAR HEMOGLOBIN 32.3 pg (27.0-31.0); MEAN CORPUSCULAR HGB CONC 33.4 g/dL (33.0-37.0); MEAN PLATELET VOLUME 11.2 fL (7.2-11.7); MONO # 1.2 K/uL (0.0-0.8); MONO % 8.5 % (0.0-10.0); RED CELL DISTRIBUTION WIDTH 13.3 % (11.5-14.5); WHITE BLOOD COUNT 13.6 K/uL (4.8-10.8)
[2017-03-09 09:50] LABS: INR 1.1
[2017-03-09 09:57] LABS: CHLORIDE 100 mmol/L (98-107); POTASSIUM 3.8 mmol/L (3.6-5.2); SODIUM 137 mmol/L (132-148)
[2017-03-09 10:00] LABS: CARBON DIOXIDE 26 mmol/L (22-30); GFR AFRICAN-AMERICAN > 60
[2017-03-09 10:01] LABS: BLOOD UREA NITROGEN 5 mg/dL (7-17); CALCIUM 9.5 mg/dl (8.6-10.4); GLUCOSE,RANDOM 180 mg/dL (65-105)
--- NOTE | 2017-03-09 15:36 | CP.PCM.CON ---
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 Review of Systems - Constitutional Constitutional: As Per HPI - EENT Eyes: absent: As Per HPI, Blind Spots, Blurred Vision, Change in Vision, Decreased Night Vision, Diplopia, Discharge, Dry Eye, Exophthalmos, Floaters, Irritation, Itchy Eyes, Loss of Peripheral Vision, Pain, Photophobia, Requires Corrective Lenses, Sees Flashes, Spots in Vision, Tunnel Vision, Other Visual Disturbances, Loss of Vision, Other Ears: absent: As Per HPI, Decreased Hearing, Ear Discharge, Ear Pain, Tinnitus, Abnormal Hearing, Disequilibrium, Dizziness, Other Nose/Mouth/Throat: absent: As Per HPI, Epistaxis, Nasal Congestion, Nasal Discharge, Nasal Obstruction, Nasal Trauma, Nose Pain, Post Nasal Drip, Sinus Pain, Sinus Pressure, Bleeding Gums, Change in Voice, Dental Pain, Dry Mouth, Dysphagia, Halitosis, Hoarsness, Lip Swelling, Mouth Lesions, Mouth Pain, Odynophagia, Sore Throat, Throat Swelling, Tongue Swelling, Facial Pain, Neck Pain, Neck Mass, Other - Breasts Breasts: absent: As Per HPI, Change in Shape, Mass, Pain, Nipple Discharge, Nipple Inversion, Skin Changes, Swelling, Other - Cardiovascular Cardiovascular: absent: As Per HPI, Acrocyanosis, Chest Pain, Chest Pain at Rest , Chest Pain with Activity, Claudication, Diaphoresis, Dyspnea, Dyspnea on Exertion, Edema, Irregular Heart Rhythm, Pain Radiating to Arm/Neck/Jaw, Leg Edema, Leg Ulcers, Lightheadedness, Orthopnea, Palpitations, Paroxysmal Nocturnal Dyspnea, Pedal Edema, Radiating Pain, Rapid Heart Rate, Slow Heart Rate, Syncope, Other - Respiratory Respiratory: absent: As Per HPI, Cough, Dyspnea, Hemoptysis, Dyspnea on Exertion , Wheezing, Snoring, Stridor, Pain on Inspiration, Chest Congestion, Excessive Mucous Production, Change in Mucous Color, Pain with Coughing, Other - Gastrointestinal Gastrointestinal: absent: As Per HPI, Abdominal Pain, Belching, Bloating, Change in Bowel Habits, Change in Stool Character, Coffee Ground Emesis, Constipation, Cramping, Diarrhea, Dyspepsia, Dysphagia, Early Satiety, Excessive Flatus, Fecal Incontinence, Heartburn, Hematemesis, Hematochezia, Loose Stools, Melena, Nausea, Odynophagia, Temesmus, Vomiting, Other - Genitourinary Genitourinary: absent: As Per HPI, Change in Urinary Stream, Difficulty Urinating, Dysuria, Flank Pain, Hematuria, Pyuria, Nocturia, Urinary Incontinence, Urinary Frequency, Urinary Hesitance, Urinary Urgency, Voiding Freq/Small Amts, Freq UTI, Hx Renal/Bladder Calculi, Hx /Renal Surgery, Bladder Distension, Other - Reproductive: Female Reproductive:Female: absent: As Per HPI, Amenorrhea, Amenorrhea/ Control, Currently Menstual, Cycle <21 Days, Cycle >35 Days, Cycle Variable, Menses 1-7 Days, Menses >/= 8 Days, Menses Variable, Cycle > 4 Weeks Between, No Menses for 6 Months, Heavy Menses, Light Menses, Normal Menses, Spotting Between Cycles , S/P Hysterectomy, Menopausal, Post Menopausal, Premenarche, Abnormal Vaginal Bleeding, Dysmenorrhea, Dyspareunia, Genital Lesions, Genital Pruritis, Pelvic Pain, Prolapse Symptoms, Sexual Dysfunction, Vaginal Discharge, Vaginal Dryness , Vaginal Odor, Vaginal Pruritis, Other - Menstruation Menstruation: absent: As Per HPI, Amenorrhea, Amenorrhea/ Control, Currently Menstual, Cycle <21 Days, Cycle >35 Days, Cycle Variable, Menses 1-7 Days, Menses >/= 8 Days, Menses Variable, Cycle > 4 Weeks Between, No Menses for 6 Months, Heavy Menses, Light Menses, Normal Menses, Spotting Between Cycles , S/P Hysterectomy, Menopausal, Post Menopausal, Premenarche, Abnormal Vaginal Bleeding, Dysmenorrhea, Other - Musculoskeletal Musculoskeletal: As Per HPI - Integumentary Integumentary: As Per HPI - Neurological Neurological: absent: As Per HPI, Abnormal Gait, Abnormal Hearing, Abnormal Movements, Abnormal Speech, Behavioral Changes, Burning Sensations, Confusion, Convulsions, Disequilibrium, Dizziness, Numbness, Focal Weakness, Frequent Falls , Headaches, Lack of Coordination, Loss of Vision, Memory Loss, Paresthesias, Radicular Pain, Restless Legs, Sensory Deficit, Syncope, Tingling, Tremor, Vertigo, Weakness, Other Visual Disturbances, Other - Psychiatric Psychiatric: absent: As Per HPI, Abnormal Sleep Pattern, Anhedonia, Anxiety, Auditory Hallucinations, Behavioral Changes, Change in Appetite, Change in Libido, Confusion, Depression, Difficulty Concentrating, Hallucinations, Homicidal Ideation, Hopelessness, Irritability, Memory Loss, Mood Swings, Panic Attacks, Paranoia, Suicidal Ideation, Visual Hallucinations, Tactile Hallucinations, Other - Endocrine Endocrine: absent: As Per HPI, Change in Body Appearance, Change in Libido, Cold Intolorance, Deepening of Voice, Excessive Sweating, Fatigue, Flushing, Heat Intolorance, Increase in Ring/Shoe/Hat Size, Palpitations, Polydipsia, Polyphagia, Polyuria, Other - Hematologic/Lymphatic Hematologic: absent: As Per HPI, Easy Bleeding, Easy Bruising, Lymphadenopathy, Other Past Patient History - Past Medical History & Family History Past Medical History?: Yes - Past Social History Smoking Status: Light Smoker < 10 Cigarettes Daily - CARDIAC Hx Cardiac Disorders: Yes Hx Hypercholesterolemia: Yes Hx Hypertension: Yes - PULMONARY Hx Respiratory Disorders: No - NEUROLOGICAL Hx Neurological Disorder: No - HEENT Hx HEENT Problems: Yes Hx Cataracts: Yes - RENAL Hx Chronic Kidney Disease: No - ENDOCRINE/METABOLIC Hx Diabetes Mellitus Type 2: Yes - HEMATOLOGICAL/ONCOLOGICAL Hx Blood Disorders: No - INTEGUMENTARY Hx Dermatological Problems: No - MUSCULOSKELETAL/RHEUMATOLOGICAL Hx Arthritis: Yes - GASTROINTESTINAL Hx Gastrointestinal Disorders: Yes Hx Hemorrhoids: Yes - GENITOURINARY/GYNECOLOGICAL Hx Genitourinary Disorders: No - PSYCHIATRIC Hx Psychophysiologic Disorder: No Hx Substance Use: No - SURGICAL HISTORY Hx Surgeries: Yes Hx Coronary Artery Bypass Graft: Yes Hx Open Heart Surgery: Yes Other/Comment: LEFT KNEE CYST REMOVED, RIGHT THIGH BOIL I & D - ANESTHESIA Hx Anesthesia: Yes Hx Anesthesia Reactions: No Hx Malignant Hyperthermia: No Has any member of the family had a problem w/ anesthesia?: No Meds Allergies/Adverse Reactions: Allergies Allergy/AdvReac Type Severity Reaction Status Date / Time No Known Allergies Allergy Verified 12/13/14 11:13 - Medications Medications: Current Medications Amlodipine Besylate (Norvasc) 10 mg PO DAILY [facility] Last Admin: 03/09/17 09:09 Dose: 10 mg Clopidogrel Bisulfate (Plavix) 75 mg PO DAILY [facility] Last Admin: 03/09/17 09:09 Dose: 75 mg Enoxaparin Sodium (Lovenox) 40 mg SC DAILY [facility] Last Admin: 03/09/17 09:09 Dose: 40 mg Dextrose/Sodium Chloride (Dextrose 5%/0.45% Ns 1000 Ml) 1,000 mls @ 75 mls/hr IV .[id number] [facility] Last Admin: 03/08/17 05:43 Dose: Not Given Insulin Aspart (Novolog Mix 70/30 (70/30 Units/Ml)) 10 units SC TID [facility] Last Admin: 03/09/17 13:32 Dose: Not Given Insulin Detemir (Levemir) 15 unit SC HS [facility] Last Admin: 03/08/17 21:37 Dose: 15 unit Metformin HCl (Glucophage) 1,000 mg PO BID [facility] Last Admin: 03/09/17 09:09 Dose: 1,000 mg Metoprolol Succinate (Toprol Xl) 50 mg PO DAILY [facility] Last Admin: 03/09/17 09:09 Dose: 50 mg Morphine Sulfate (Morphine) 1 mg IVP Q3 PRN PRN Reason: Pain Last Admin: 03/09/17 13:29 Dose: 1 mg Ondansetron HCl (Zofran Inj) 4 mg IVP Q6 PRN PRN Reason: Nausea/Vomiting Oxycodone/Acetaminophen (Percocet 5/325 Mg Tab) 2 tab PO Q4H PRN PRN Reason: Pain, severe (8-10) Stop: 03/10/17 12:07 Last Admin: 03/08/17 04:25 Dose: 2 tab Physical Exam - Constitutional Appears: Non-toxic, Cachectic, Chronically Ill - Head Exam Head Exam: ATRAUMATIC, NORMAL INSPECTION, NORMOCEPHALIC - Eye Exam Eye Exam: PERRL. absent: Scleral icterus - ENT Exam ENT Exam: Mucous Membranes Dry, Normal External Ear Exam - Neck Exam Neck exam: Negative for: Lymphadenopathy, Thyromegaly - Respiratory Exam Respiratory Exam: Decreased Breath Sounds, Clear to Auscultation Bilateral - Cardiovascular Exam Cardiovascular Exam: REGULAR RHYTHM, +S1, +S2 - GI/Abdominal Exam GI & Abdominal Exam: Diminished Bowel Sounds, Soft. absent: Tenderness - Rectal Exam Rectal Exam: Deferred - Exam Exam: NORMAL INSPECTION - Extremities Exam Extremities exam: Positive for: joint swelling, tenderness, pedal pulses present. Negative for: calf tenderness, pedal edema - Back Exam Back exam: absent: CVA tenderness (L), CVA tenderness (R), paraspinal tenderness - Neurological Exam Neurological exam: Alert, CN II-XII Intact, Oriented x3, Reflexes Normal - Psychiatric Exam Psychiatric exam: Normal Mood - Skin Skin Exam: Dry, Intact Results - Vital Signs Recent Vital Signs: Last Vital Signs Temp 97.3 F L 03/09/17 09:55 Pulse 100 H 03/09/17 09:55 Resp 20 03/09/17 09:55 BP 131/77 03/09/17 09:55 Pulse Ox 99 03/09/17 09:55 - Labs Result Diagrams: 03/09/17 09:37 03/09/17 09:37 Labs: Laboratory Results - last 24 hr 03/08/17 03/08/17 03/09/17 16:17 21:05 06:38 WBC RBC Hgb Hct MCV MCH MCHC RDW Plt Count MPV Neut % (Auto) Lymph % (Auto) [place] % (Auto) Eos % (Auto) Baso % (Auto) Neut # Lymph # [place] # Eos # Baso # PT INR APTT Sodium Potassium Chloride Carbon Dioxide Anion Gap BUN Creatinine Est GFR ( Amer) Est GFR (Non-Af Amer) POC Glucose (mg/dL) 232 H 218 H 180 H Random Glucose Calcium 03/09/17 03/09/17 03/09/17 09:37 09:37 09:37 WBC 13.6 H RBC 3.34 L Hgb 10.8 L Hct 32.3 L MCV 96.9 MCH 32.3 H MCHC 33.4 RDW 13.3 Plt Count 136 MPV 11.2 Neut % (Auto) 74.0 Lymph % (Auto) 14.9 L [place] % (Auto) 8.5 Eos % (Auto) 1.9 Baso % (Auto) 0.7 Neut # 10.1 H Lymph # 2.0 [place] # 1.2 H Eos # 0.3 Baso # 0.1 PT 12.2 INR 1.1 APTT 26 Sodium 137 Potassium 3.8 Chloride 100 Carbon Dioxide 26 Anion Gap 15 BUN 5 L Creatinine 0.6 L Est GFR ( Amer) > 60 Est GFR (Non-Af Amer) > 60 POC Glucose (mg/dL) Random Glucose 180 H Calcium 9.5 03/09/17 11:36 WBC RBC Hgb Hct MCV MCH MCHC RDW Plt Count MPV Neut % (Auto) Lymph % (Auto) [place] % (Auto) Eos % (Auto) Baso % (Auto) Neut # Lymph # [place] # Eos # Baso # PT INR APTT Sodium Potassium Chloride Carbon Dioxide Anion Gap BUN Creatinine Est GFR ( Amer) Est GFR (Non-Af Amer) POC Glucose (mg/dL) 251 H Random Glucose Calcium Assessment & Plan - Assessment and Plan (Free Text) Assessment: LEUKOCYTOSIS LIKELY REACTIVE S/P RIGHT TKR OA OBESITY DMII CAD CABG RECURRENT SKIN INFECTIUONS OBSERVE OFF ANTIBIOTICS FOR NOW
--- NOTE | 2017-03-09 19:44 | CP.PCM.PN ---
Subjective - Date & Time of Evaluation Date of Evaluation: 03/09/17 Time of Evaluation: 09:40 - Subjective Subjective: clinically same Objective - Vital Signs/Intake and Output Vital Signs (last 24 hours): Temp Pulse Resp BP Pulse Ox 98 F 96 H 18 118/76 96 03/09/17 15:47 03/09/17 16:30 03/09/17 15:47 03/09/17 15:47 03/09/17 15:47 - Medications Medications: Current Medications Amlodipine Besylate (Norvasc) 10 mg PO DAILY [facility] Last Admin: 03/09/17 09:09 Dose: 10 mg Clopidogrel Bisulfate (Plavix) 75 mg PO DAILY [facility] Last Admin: 03/09/17 09:09 Dose: 75 mg Enoxaparin Sodium (Lovenox) 40 mg SC DAILY [facility] Last Admin: 03/09/17 09:09 Dose: 40 mg Dextrose/Sodium Chloride (Dextrose 5%/0.45% Ns 1000 Ml) 1,000 mls @ 75 mls/hr IV .[id number] [facility] Last Admin: 03/08/17 05:43 Dose: Not Given Insulin Aspart (Novolog Mix 70/30 (70/30 Units/Ml)) 10 units SC TID [facility] Last Admin: 03/09/17 17:38 Dose: Not Given Insulin Detemir (Levemir) 15 unit SC HS [facility] Last Admin: 03/08/17 21:37 Dose: 15 unit Metformin HCl (Glucophage) 1,000 mg PO BID [facility] Last Admin: 03/09/17 17:56 Dose: 1,000 mg Metoprolol Succinate (Toprol Xl) 50 mg PO DAILY [facility] Last Admin: 03/09/17 09:09 Dose: 50 mg Morphine Sulfate (Morphine) 1 mg IVP Q3 PRN PRN Reason: Pain Last Admin: 03/09/17 13:29 Dose: 1 mg Ondansetron HCl (Zofran Inj) 4 mg IVP Q6 PRN PRN Reason: Nausea/Vomiting Oxycodone/Acetaminophen (Percocet 5/325 Mg Tab) 2 tab PO Q4H PRN PRN Reason: Pain, severe (8-10) Stop: 03/10/17 12:07 Last Admin: 03/08/17 04:25 Dose: 2 tab - Labs Labs: 03/09/17 09:37 03/09/17 09:37 PT 12.2 SECONDS (9.7-12.2) 03/09/17 09:37 INR 1.1 03/09/17 09:37 APTT 26 SECONDS (21-34) 03/09/17 09:37 - Constitutional Appears: Well - Head Exam Head Exam: ATRAUMATIC, NORMAL INSPECTION, NORMOCEPHALIC - Eye Exam Eye Exam: EOMI, Normal appearance, PERRL - ENT Exam ENT Exam: Mucous Membranes Moist, Normal Exam - Neck Exam Neck Exam: Full ROM, Normal Inspection. absent: Lymphadenopathy - Respiratory Exam Respiratory Exam: Decreased Breath Sounds - Cardiovascular Exam Cardiovascular Exam: REGULAR RHYTHM, +S1, +S2. absent: Murmur - GI/Abdominal Exam GI & Abdominal Exam: Diminished Bowel Sounds - Rectal Exam Rectal Exam: Deferred
[2017-03-09] MEDS: Insulin Detemir 100 units/ml Vial (Levemir) SC SCH (21:21)
[2017-03-10 00:37] VITALS: RESP 20
[2017-03-10 07:31] LABS: BASO % 0.3 % (0.0-2.0); EOS # 0.3 K/uL (0.0-0.7); EOS % 2.8 % (0.0-4.0); LYMPH # 2.7 K/uL (1.0-4.3); LYMPH % 22.8 % (20.0-40.0); MEAN CELL VOLUME 96.5 fL (81.0-99.0); MEAN CORPUSCULAR HEMOGLOBIN 32.7 pg (27.0-31.0); MEAN CORPUSCULAR HGB CONC 33.8 g/dL (33.0-37.0); MEAN PLATELET VOLUME 11.2 fL (7.2-11.7); MONO # 1.1 K/uL (0.0-0.8); MONO % 9.3 % (0.0-10.0); RED CELL DISTRIBUTION WIDTH 13.2 % (11.5-14.5)
[2017-03-10 07:45] LABS: CHLORIDE 102 mmol/L (98-107); POTASSIUM 3.3 mmol/L (3.6-5.2); SODIUM 137 mmol/L (132-148)
[2017-03-10 07:47] LABS: GFR AFRICAN-AMERICAN > 60
[2017-03-10 07:48] LABS: BLOOD UREA NITROGEN 9 mg/dL (7-17); CARBON DIOXIDE 26 mmol/L (22-30); GLUCOSE,RANDOM 138 mg/dL (65-105)
[2017-03-10] MEDS: (Novolog Mix 70/30) Insulin Aspart/Insulin Aspar 100 units/ml SC SCH ×3 (10:34→17:33)
[2017-03-10] MEDS: Enoxaparin 40 mg Syringe SC SCH (10:35)
[2017-03-10] MEDS: Metoprolol Succinate 50 mg XL Tab PO SCH (10:37)
--- NOTE | 2017-03-10 12:15 | CP.PCM.PN ---
Subjective - Date & Time of Evaluation Date of Evaluation: 03/10/17 Time of Evaluation: 09:00 - Subjective Subjective: WBC REMAINS ELEVATED NO FEVER AND WOUND OK AMBULATES WITH ASSISTANCE AWAIT SUBACUTE TRANSFER Objective - Vital Signs/Intake and Output Vital Signs (last 24 hours): Temp Pulse Resp BP Pulse Ox 98 F 98 H 20 132/82 96 03/10/17 10:37 03/10/17 12:08 03/10/17 10:37 03/10/17 12:08 03/10/17 09:25 Intake and Output: 03/10/17 03/10/17 06:59 18:59 Intake Total 100 Balance 100 - Medications Medications: Current Medications Amlodipine Besylate (Norvasc) 10 mg PO DAILY [facility] Last Admin: 03/09/17 09:09 Dose: 10 mg Clopidogrel Bisulfate (Plavix) 75 mg PO DAILY [facility] Last Admin: 03/10/17 10:37 Dose: 75 mg Enoxaparin Sodium (Lovenox) 40 mg SC DAILY [facility] Last Admin: 03/10/17 10:35 Dose: 40 mg Dextrose/Sodium Chloride (Dextrose 5%/0.45% Ns 1000 Ml) 1,000 mls @ 75 mls/hr IV .[id number] [facility] Last Admin: 03/08/17 05:43 Dose: Not Given Insulin Aspart (Novolog Mix 70/30 (70/30 Units/Ml)) 10 units SC TID [facility] Last Admin: 03/10/17 10:34 Dose: Not Given Insulin Detemir (Levemir) 15 unit SC HS [facility] Last Admin: 03/09/17 21:21 Dose: 15 unit Metformin HCl (Glucophage) 1,000 mg PO BID [facility] Last Admin: 03/10/17 10:37 Dose: 1,000 mg Metoprolol Succinate (Toprol Xl) 50 mg PO DAILY [facility] Last Admin: 03/10/17 10:37 Dose: 50 mg Morphine Sulfate (Morphine) 1 mg IVP Q3 PRN PRN Reason: Pain Last Admin: 03/09/17 13:29 Dose: 1 mg Ondansetron HCl (Zofran Inj) 4 mg IVP Q6 PRN PRN Reason: Nausea/Vomiting - Labs Labs: 03/10/17 07:19 03/10/17 07:19 PT 11.5 SECONDS (9.7-12.2) 03/10/17 07:19 INR 1.0 03/10/17 07:19 APTT 26 SECONDS (21-34) 03/10/17 07:19 - Constitutional Appears: Non-toxic, Chronically Ill - Head Exam Head Exam: NORMOCEPHALIC - Eye Exam Eye Exam: PERRL. absent: Scleral icterus - ENT Exam ENT Exam: Mucous Membranes Dry - Neck Exam Neck Exam: absent: Lymphadenopathy, Thyromegaly - Respiratory Exam Respiratory Exam: Decreased Breath Sounds - Cardiovascular Exam Cardiovascular Exam: REGULAR RHYTHM - GI/Abdominal Exam GI & Abdominal Exam: Distended, Soft - Rectal Exam Rectal Exam: Deferred - Exam Exam: NORMAL INSPECTION - Extremities Exam Extremities Exam: absent: Calf Tenderness, Pedal Edema - Back Exam Back Exam: absent: CVA tenderness (L), CVA tenderness (R) - Neurological Exam Neurological Exam: Alert, Awake, Oriented x3 Assessment and Plan - Assessment and Plan (Free Text) Plan: HOLD ANTIBIOTICS OBSERVE FOR ANY SIGNS OF INFECTION
[2017-03-10] MEDS ORDERED: Potassium Chloride 20 mEq ER Tab PO ONE (12:45)
[2017-03-10 16:43] VITALS: PULSE 97; TEMP 98.6; O2SAT 97
[2017-03-10 16:54] VITALS: BP 116/73
--- NOTE | 2017-03-10 17:53 | CP.PCM.PN ---
Subjective - Date & Time of Evaluation Date of Evaluation: 03/10/17 Time of Evaluation: 09:00 - Subjective Subjective: clinically same Objective - Vital Signs/Intake and Output Vital Signs (last 24 hours): Temp Pulse Resp BP Pulse Ox 98.6 F 97 H 20 116/73 97 03/10/17 16:00 03/10/17 16:00 03/10/17 16:00 03/10/17 16:00 03/10/17 16:00 Intake and Output: 03/10/17 03/10/17 06:59 18:59 Intake Total 100 400 Balance 100 400 - Medications Medications: Current Medications Amlodipine Besylate (Norvasc) 10 mg PO DAILY [facility] Last Admin: 03/10/17 12:09 Dose: 10 mg Clopidogrel Bisulfate (Plavix) 75 mg PO DAILY [facility] Last Admin: 03/10/17 10:37 Dose: 75 mg Enoxaparin Sodium (Lovenox) 40 mg SC DAILY [facility] Last Admin: 03/10/17 10:35 Dose: 40 mg Dextrose/Sodium Chloride (Dextrose 5%/0.45% Ns 1000 Ml) 1,000 mls @ 75 mls/hr IV .[id number] [facility] Last Admin: 03/08/17 05:43 Dose: Not Given Insulin Aspart (Novolog Mix 70/30 (70/30 Units/Ml)) 10 units SC TID [facility] Last Admin: 03/10/17 17:33 Dose: Not Given Insulin Detemir (Levemir) 15 unit SC HS [facility] Last Admin: 03/09/17 21:21 Dose: 15 unit Metformin HCl (Glucophage) 1,000 mg PO BID [facility] Last Admin: 03/10/17 17:35 Dose: 1,000 mg Metoprolol Succinate (Toprol Xl) 50 mg PO DAILY [facility] Last Admin: 03/10/17 10:37 Dose: 50 mg Morphine Sulfate (Morphine) 1 mg IVP Q3 PRN PRN Reason: Pain Last Admin: 03/10/17 12:10 Dose: 1 mg Ondansetron HCl (Zofran Inj) 4 mg IVP Q6 PRN PRN Reason: Nausea/Vomiting - Labs Labs: 03/10/17 07:19 03/10/17 07:19 PT 11.5 SECONDS (9.7-12.2) 03/10/17 07:19 INR 1.0 03/10/17 07:19 APTT 26 SECONDS (21-34) 03/10/17 07:19 - Constitutional Appears: Well - Head Exam Head Exam: ATRAUMATIC, NORMAL INSPECTION, NORMOCEPHALIC - Eye Exam Eye Exam: EOMI, Normal appearance, PERRL Pupil Exam: NORMAL ACCOMODATION, PERRL - ENT Exam ENT Exam: Mucous Membranes Moist, Normal Exam - Neck Exam Neck Exam: Full ROM, Normal Inspection. absent: Lymphadenopathy - Respiratory Exam Respiratory Exam: Decreased Breath Sounds - Cardiovascular Exam Cardiovascular Exam: REGULAR RHYTHM, +S1, +S2 - GI/Abdominal Exam GI & Abdominal Exam: Soft, Diminished Bowel Sounds - Rectal Exam Rectal Exam: Deferred
--- NOTE | 2017-03-11 02:17 | CON ---
DATE: CARDIOLOGY CONSULTATION REQUESTING PHYSICIANS: Karl Ratliff MD and Jose Eugene MD HISTORY OF PRESENT ILLNESS: A 66-year-old female with history of hypertension, diabetes and CAD who was brought in for surgery in the right neck. The patient was seen in the postop. The patient was actually seen by Dr. Fly Eugene and Dr. Ratliff. The patient was seen earlier by me for cardiac clearance. Surgery has gone uneventful. Currently, she denies any chest pain, shortness of breath or PND. PHYSICAL EXAMINATION VITAL SIGNS: Stable. LUNGS: Clear. CARDIAC: Unremarkable. ABDOMEN: Soft. LABORATORY DATA: Routine labs are acceptable. ASSESSMENT: This is a 66-year-old female with a history of coronary artery disease status post coronary artery bypass graft, status post on the knee has been stable postoperatively. SUGGESTION: To continue cardiac medication and blood pressure control and control the risk factors. No further workup cardiac reed is recommended at this time. I thank you kindly. Darrell Henry MD
--- NOTE | 2017-03-11 19:57 | CP.PCM.PN ---
Subjective - Date & Time of Evaluation Date of Evaluation: 03/08/17 Time of Evaluation: 17:00 - Subjective Subjective: Pt is sitting up in bed eating a snack, comfortable. She rates her R knee pain 4/10 at rest. HV drain output 330 since surgery, only 15cc over the last 8 hrs and settled. She denies CP, SOB, N&V, fevers, chills, numbness, tingling, calf pain, HAGER. Objective - Vital Signs/Intake and Output Vital Signs (last 24 hours): Temp Pulse Resp BP Pulse Ox 98.6 F 97 H 20 116/73 97 03/10/17 16:00 03/10/17 17:30 03/10/17 16:00 03/10/17 16:00 03/10/17 16:00 - Labs Labs: 03/10/17 07:19 03/10/17 07:19 PT 11.5 SECONDS (9.7-12.2) 03/10/17 07:19 INR 1.0 03/10/17 07:19 APTT 26 SECONDS (21-34) 03/10/17 07:19 - Extremities Exam Additional comments: Right Lower Extremity: dressing c/d/i, - swelling, + 5/5 motor strength Hip flex/ext/abd/add, ankle DF/PF, toes up & down sensory intact L2-S1, DPN/TN/SPN 2+ DP, BCR all toes Calves soft/nt bl Left Lower Extremity: + medial joint line ttp, - swelling/warmth/redness, skin intact ROM knee limited 5-100, + pain with forced flexion/ext + 5/5 motor strength Hip flex/ext/abd/add, knee flex/ext, ankle df/pf, toes up & down sensory intact L2-S1, DPN/TN/SPN 2+ DP, BCR all toes Assessment and Plan (1) Primary osteoarthritis of right knee Assessment & Plan: 66 yo Female w/ long standing Right >> Left knee pain and dysfunction failed conservative tx s/p R knee TKA 03/07/17 POD#1 PLAN: R knee: -doing very well -dc pitts -drain dc today as well, output in drain line settled and last shift only 15cc serous -continue Ancef 2gm IV Q8hr for 3 doses post-op total -continue CPM, advance to full ROM as tolerated -WBAT, no restrictions -physical therapy= ROM/stretch/strength/ambulation (standard walker) -OOB as much as possible -IS -DVT proph= SCD, Lovenox 40sc daily -continue Plavix -followup on cards consult to dc from tele and other recs including Plavix +/- detention Lovenox -medical / HTN/ DM management by primary team, Dr. Fly Eugene -pain control, not tolerating Percocet, can use toradol if not contraindicated by primary team -labs stable, continue CBC/chem daily -keep sterile dressing from the OR on the wound until POD#5, I will change personally if still in hospital or at [facility] -will follow -please contact me w/ any questions, updates, concerns [phone] Adam Payton MD Orthopedic Surgery Status: Acute
--- NOTE | 2017-03-11 20:41 | CP.PCM.PN ---
Subjective - Date & Time of Evaluation Date of Evaluation: 03/09/17 Time of Evaluation: 18:00 - Subjective Subjective: Pt sitting in chair watching TV comfortably, pain rated 2/10 at rest, controlled well with Morphine 1mg injection. She states that she worked with PT today for an hour and was able to walk to the bathroom and advance her CPM to 80 degrees. She denies any CP, SOB, HAGER, fevers, chills, N&V, numbness, tingling, calf pain. Objective - Vital Signs/Intake and Output Vital Signs (last 24 hours): Temp Pulse Resp BP Pulse Ox 98.6 F 97 H 20 116/73 97 03/10/17 16:00 03/10/17 17:30 03/10/17 16:00 03/10/17 16:00 03/10/17 16:00 - Labs Labs: 03/10/17 07:19 03/10/17 07:19 PT 11.5 SECONDS (9.7-12.2) 03/10/17 07:19 INR 1.0 03/10/17 07:19 APTT 26 SECONDS (21-34) 03/10/17 07:19 - Extremities Exam Additional comments: Right Lower Extremity: dressing c/d/i, - swelling, ROM 0-60 w/ anterior surgical wound pain + 5/5 motor strength Hip flex/ext/abd/add, knee extension (flexion not tested due to pain), ankle DF/PF, toes up & down sensory intact L2-S1, DPN/TN/SPN 2+ DP, BCR all toes Calves soft/nt bl Left Lower Extremity: + medial joint line ttp, - swelling/warmth/redness, skin intact ROM knee limited 5-100, + pain with forced flexion/ext + 5/5 motor strength Hip flex/ext/abd/add, knee flex/ext, ankle df/pf, toes up & down sensory intact L2-S1, DPN/TN/SPN 2+ DP, BCR all toes Assessment and Plan (1) Primary osteoarthritis of right knee Assessment & Plan: 66 yo Female w/ long standing Right >> Left knee pain and dysfunction failed conservative tx s/p R knee TKA 03/07/17 POD#2 today PLAN: R knee: -doing very well -dc'd pitts yesterday, passed TOV -drain dc'd yesterday, POD#1 -dc IV abx once 3rd dose of Ancef IV administered -continue CPM, advance to full ROM as tolerated -WBAT, no restrictions -physical therapy= ROM/stretch/strength/ambulation (standard walker) -OOB as much as possible -IS -DVT proph= SCD, Lovenox 40sc daily -continue Plavix -followup on cards consult: ok for dc from tele and verbally recommended continuing both Plavix and Lovenox for at least 2 weeks post-op, depending on activity level at that point, can switch to Plavix and ASA 325 Q12 -medical / HTN/ DM management by primary team, Dr. Fly Eugene -pain control, not tolerating Percocet, can continue 1mg Morphine Q4hr PRN IV -labs stable, continue CBC/chem daily, today H/H 10.8/32.3 -from ortho point of view, ok for dc to rehab vs home with services, as long as medically and cards cleared for dc -once dc please ensure that the pt has appointment and transportation to see me in my office on Friday03/18/17 at 8am -if dc to facility, can perform dry dressing changes daily starting POD#5 consisting of sterile telfa over wound, sterile gauze, darryl wrap.....no tape, no wound treatments (no iodine or wash) -can start showers with shower chair POD#15 as long as she has seen me in the office at least once -will follow -please contact me w/ any questions, updates, concerns [phone] Adam Payton MD Orthopedic Surgery Status: Acute
--- NOTE | 2017-03-11 20:54 | CP.PCM.PN ---
Subjective - Date & Time of Evaluation Date of Evaluation: 03/10/17 Time of Evaluation: 08:00 - Subjective Subjective: Pt lying in bed comfortably, denies pain at rest. She states that she walked half way down the [place] with PT today. She is please with her progress. Awaiting placement to rehab today. Denies CP, SOB, HAGER, N&V, fevers, chills, numbness, tingling, calf pain. Objective - Vital Signs/Intake and Output Vital Signs (last 24 hours): Temp Pulse Resp BP Pulse Ox 98.6 F 97 H 20 116/73 97 03/10/17 16:00 03/10/17 17:30 03/10/17 16:00 03/10/17 16:00 03/10/17 16:00 - Labs Labs: 03/10/17 07:19 03/10/17 07:19 PT 11.5 SECONDS (9.7-12.2) 03/10/17 07:19 INR 1.0 03/10/17 07:19 APTT 26 SECONDS (21-34) 03/10/17 07:19 - Extremities Exam Additional comments: Right Lower Extremity: dressing c/d/i, - swelling, ROM 0-60 w/ anterior surgical wound pain + 5/5 motor strength Hip flex/ext/abd/add, knee extension (flexion not tested due to pain), ankle DF/PF, toes up & down sensory intact L2-S1, DPN/TN/SPN 2+ DP, BCR all toes Calves soft/nt bl Left Lower Extremity: + medial joint line ttp, - swelling/warmth/redness, skin intact ROM knee limited 5-100, + pain with forced flexion/ext + 5/5 motor strength Hip flex/ext/abd/add, knee flex/ext, ankle df/pf, toes up & down sensory intact L2-S1, DPN/TN/SPN 2+ DP, BCR all toes Assessment and Plan (1) Primary osteoarthritis of right knee Assessment & Plan: 66 yo Female w/ long standing Right >> Left knee pain and dysfunction PMH= HTN, DM, CAD s/p CABG, hypercholest failed conservative tx R knee pain Dx= R knee DJD/flexion contracture & loss of ROM/ varus s/p R knee TKA 03/07/17 POD#3 today PLAN: R knee: -doing very well -continue CPM, advance to full ROM as tolerated -WBAT, no restrictions -physical therapy= ROM/stretch/strength/ambulation (standard walker) -OOB as much as possible -IS -DVT proph= SCD, Lovenox 40sc daily -continue Plavix -followup on cards consult: ok for dc from tele and verbally recommended continuing both Plavix and Lovenox for at least 2 weeks post-op, depending on activity level at that point, can switch to Plavix and ASA 325 Q12 -medical / HTN/ DM management by primary team, Dr. Fly Eugene -pain control, not tolerating Percocet, can continue 1mg Morphine Q4hr PRN IV -labs stable, continue CBC/chem daily, today H/H -from ortho point of view, ok for dc to rehab vs home with services, as long as medically and cards cleared for dc -once dc please ensure that the pt has appointment and transportation to see me in my office on Friday03/18/17 at 8am -if dc to facility, can perform dry dressing changes daily starting POD#5 consisting of sterile telfa over wound, sterile gauze, darryl wrap.....no tape, no wound treatments (no iodine or wash) -if dc to facility, I prefer [facility] or acute rehab, but can be dc home with services as well -can start showers with shower chair POD#15 as long as she has seen me in the office at least once -will follow -please contact me w/ any questions, updates, concerns [phone] Adam Payton MD Orthopedic Surgery Status: Acute
== END 2017-03-10 19:45 | DRG 470 ==
LOC: C.9S 03-07 07:29 → C.6T 03-07 19:44
PROVIDERS: ADMIT Student in an Organized Health Care Education/Training Program; ATTEND Student in an Organized Health Care Education/Training Program
PROC: 0SNC0ZZ Release Right Knee Joint, Open Approach (ICD-10-PCS; 2017-03-07)
PROC: 0SBC0ZZ Excision of Right Knee Joint, Open Approach (ICD-10-PCS; 2017-03-07)
PROC: 0SCC0ZZ Extirpation of Matter from Right Knee Joint, Open Approach (ICD-10-PCS; 2017-03-07)
PROC: 3E0T3BZ Introduction of Anesthetic Agent into Peripheral Nerves and Plexi, Percutaneous Approach (ICD-10-PCS; 2017-03-07)
PROC: 0SRC0J9 Replacement of Right Knee Joint with Synthetic Substitute, Cemented, Open Approach (ICD-10-PCS; principal; 2017-03-07 11:25)
DX: M17.11 Unilateral primary osteoarthritis, right knee (principal); M24.561 Contracture, right knee; M65.861 Other synovitis and tenosynovitis, right lower leg; M23.41 Loose body in knee, right knee; G89.18 Other acute postprocedural pain; M21.161 Varus deformity, not elsewhere classified, right knee; M21.261 Flexion deformity, right knee; I25.10 Atherosclerotic heart disease of native coronary artery without angina pectoris; I10 Essential (primary) hypertension; E11.9 Type 2 diabetes mellitus without complications; Z95.1 Presence of aortocoronary bypass graft

== ENCOUNTER 2017-08-29 09:06 | Inpatient (IN) | payer MEDICARE ==
[2017-08-27 07:15] VITALS: BMI 31.9
[2017-08-29 09:59] LABS: INR 0.9; PROTHROMBIN TIME 10.4 SECONDS (9.7-12.2)
[2017-08-29] MEDS ORDERED: Bacitracin 150,000 UNIT in Sodium Chloride 0.9% Irrig 3,000 ML IR SCH (12:56)
[2017-08-29] MEDS ORDERED: Propofol 10 mg/ml Inj (20 ML) ONE (13:17)
[2017-08-29] MEDS ORDERED: HYDROmorphone 0.5 mg/0.5 ml ISec IVP PRN ×2 (14:40→19:18)
[2017-08-29] MEDS ORDERED: Rocuronium 10 mg/ml (10 ml) ONE (14:47)
[2017-08-29] MEDS ORDERED: Lactated Ringer's 1,000 ML IV ONE (15:20)
[2017-08-29] MEDS ORDERED: Succinylcholine Chloride 20 mg/ml Syr (5 ml) IV ONE (16:06)
[2017-08-29] MEDS ORDERED: Morphine 4 MG/ML VIAL ONE (17:07)
[2017-08-29] MEDS ORDERED: Metoprolol 1 mg/ml Inj IVP ONE (17:08)
[2017-08-29] MEDS ORDERED: ceFAZolin IV 1 gm in Dextrose 2 GM/100 ML BAG IVPB ONE (17:08)
[2017-08-29 17:11] LABS: FLUID TYPE SYNOVIAL FLUID
[2017-08-29] MEDS ORDERED: Bupivacaine Liposomal Inj 20 ml INJ ONE (18:01)
[2017-08-29] MEDS ORDERED: Neostigmine Methylsulfate 3mg/3ml Syringe IV ONE (18:43)
[2017-08-29] MEDS ORDERED: Oxycodone/Acetaminophen 5/325 mg Tab PO PRN (19:02)
[2017-08-29] MEDS ORDERED: Midazolam 2 MG/2 ML VIAL ONE (19:06)
[2017-08-29] MEDS ORDERED: Bupivacaine HCl 0.5% PF (10 ml) Inj ONE ×2 (19:16→19:17)
[2017-08-29] MEDS ORDERED: HYDROmorphone 0.5 mg/0.5 ml ISec ONE ×2 (19:20→19:24)
[2017-08-29] MEDS: HYDROmorphone 0.5 mg/0.5 ml ISec IVP PRN ×2 (19:20→19:25)
[2017-08-29 19:26] LABS: SF GROSS APPEARANCE BLOODY (CLEAR)
--- NOTE | 2017-08-29 20:06 | PCM.ANESB7 ---
Adductor Canal Block - Adductor Canal Block Date of Procedure: 08/29/17 Anesthiologist: myra Pre-Procedure Diagnosis: left total knee Post-Procedure Diagnosis: left total knee Procedure Performed: Adductor Canal Block Left - Procedure Adductor Canal Block: The procedure was explained to the patient that it is for the post-operative pain management. Consent was obtained after a thorough discussion with the patient regarding the benefits and possible complications of local anesthetic adductor canal block of the femoral nerve. Standard monitors, as defined by the ASA, were applied to the patient. Time-out was held with the circulating nurse to confirm the appropriate block. After applying supplemental oxygen and administering IV Sedation as needed, the patient was placed in supine position with and the operative leg was flexed slightly at the knee and externally rotated as needed, and was kept anatomically stable. The mid-thigh of the ___ left lower extremity was exposed. The ultrasound transducer was then applied transversely along the medial aspect, about midway down the thigh and the femoral artery and vein were identified in appropriate relation with the sartorius muscle. At this time, the femoral nerve was visualized lateral to the femoral artery within the canal. After thorough identification, this area area was prepped with Chloroprep solution three times and 1 % Lidocaine was injected subcutaneously for topical anesthesia. At this point, a #22 gauge Stimuplex 4-inch needle was inserted in-plane in a [id number] orientation, and advanced toward the femoral nerve. Advancement was performed carefully under direct ultrasound visualization. Nerve stimulator was used and appropriate muscle twitch was obtained at current of _(no twitch)____MA. After negative aspiration, _5____cc of __0.5___% ____ Bupivacaine was injected and this was followed with ___25___ cc of __0.5 % Bupivacaine . Under ultrasound guidance the local anesthetics were observed spreading around the femoral nerve. The needle was removed intact and sterile dressing was applied. The patient had stable vital signs, was conscious and in no apparent distress. The patient tolerated the femoral nerve block well with stable vital signs and was prepared for subsequent surgery
[2017-08-29 20:12] LABS: HEMOGLOBIN 10.9 g/dL (11.0-16.0); MEAN CELL VOLUME 94.9 fL (81.0-99.0); MEAN CORPUSCULAR HEMOGLOBIN 31.7 pg (27.0-31.0); MEAN CORPUSCULAR HGB CONC 33.4 g/dL (33.0-37.0); MEAN PLATELET VOLUME 10.5 fL (7.2-11.7); RBC 3.44 Mil/uL (3.80-5.20); RED CELL DISTRIBUTION WIDTH 13.5 % (11.5-14.5); WHITE BLOOD COUNT 13.3 K/uL (4.8-10.8)
[2017-08-29 20:25] LABS: ALB/GLOB RATIO 1.2 (1.0-2.1); ALBUMIN 3.4 g/dL (3.5-5.0); ALT/SGPT 27 U/L (9-52); AST/SGOT 26 U/L (14-36); BLOOD UREA NITROGEN 11 mg/dL (7-17); CALCIUM 8.4 mg/dl (8.6-10.4); GFR AFRICAN-AMERICAN > 60; GFR NON-AFRICAN AMERICAN > 60
--- NOTE | 2017-08-29 20:55 | RAD ---
Indication: Status post left TKA Comparison: Bilateral knee radiographs performed 07/12/17 Two views, left knee Findings: The patient is status post left knee total arthroplasty. Alignment appears satisfactory. Soft tissue swelling, subcutaneous emphysema, drainage catheter, and surgical love compatible with recent postoperative history Impression: Status post left arthroplasty as above.
[2017-08-29] MEDS: Sodium Chloride 0.9% 1,000 ML IV SCH (21:00)
--- NOTE | 2017-08-29 23:18 | CP.PCM.HP ---
Past Patient History - Past Medical History & Family History Past Medical History?: Yes - Past Social History Smoking Status: Current Some Days Smoker - CARDIAC Hx Cardiac Disorders: Yes Hx Hypercholesterolemia: Yes Hx Hypertension: Yes Other/Comment: HX: CARDIAC BYPASS X2(2013) - PULMONARY Hx Respiratory Disorders: No - NEUROLOGICAL Hx Neurological Disorder: No - HEENT Hx HEENT Problems: Yes Hx Cataracts: Yes - RENAL Hx Chronic Kidney Disease: No - ENDOCRINE/METABOLIC Hx Endocrine Disorders: Yes Hx Diabetes Mellitus Type 2: Yes - HEMATOLOGICAL/ONCOLOGICAL Hx Blood Disorders: No - INTEGUMENTARY Hx Dermatological Problems: No - MUSCULOSKELETAL/RHEUMATOLOGICAL Hx Musculoskeletal Disorders: Yes Hx Arthritis: Yes Hx Falls: No Hx Unsteady Gait: Yes - GASTROINTESTINAL Hx Gastrointestinal Disorders: Yes Hx Hemorrhoids: Yes - GENITOURINARY/GYNECOLOGICAL Hx Genitourinary Disorders: No - PSYCHIATRIC Hx Psychophysiologic Disorder: No Hx Substance Use: No - SURGICAL HISTORY Hx Surgeries: Yes Hx Cataract Extraction: Yes (BILAT.) Hx Coronary Artery Bypass Graft: Yes (X2) Hx Open Heart Surgery: Yes Hx Orthopedic Surgery: Yes Other/Comment: HX: LEFT KNEE CYST REMOVED. HX: RIGHT THIGH BOIL I & D. HX: TOTAL RIGHT KNEE REPLACEMENT(03/07/17) - ANESTHESIA Hx Anesthesia: Yes Hx Anesthesia Reactions: No Hx Malignant Hyperthermia: No Meds Allergies/Adverse Reactions: Allergies Allergy/AdvReac Type Severity Reaction Status Date / Time No Known Allergies Allergy Verified 08/26/17 10:42 Results - Vital Signs Recent Vital Signs: Last Vital Signs Temp 98.0 F 08/29/17 21:30 Pulse 97 H 08/29/17 21:30 Resp 22 08/29/17 21:30 BP 147/87 08/29/17 21:30 Pulse Ox 99 08/29/17 21:30 - Labs Result Diagrams: 08/29/17 20:07 08/29/17 20:07 Labs: Laboratory Results - last 24 hr 08/29/17 08/29/17 08/29/17 09:34 09:46 09:46 WBC RBC Hgb Hct MCV MCH MCHC RDW Plt Count MPV PT 10.4 INR 0.9 APTT 26 Sodium Potassium Chloride Carbon Dioxide Anion Gap BUN Creatinine Est GFR ( Amer) Est GFR (Non-Af Amer) POC Glucose (mg/dL) 198 H Random Glucose Calcium Total Bilirubin AST ALT Alkaline Phosphatase Total Protein Albumin Globulin Albumin/Globulin Ratio Fluid Type Synovial WBC Synovial RBC Synovial Neutrophils Synovial Lymphocytes Synov Monos/Macrophage Synovial Fluid Comment Blood Type B NEGATIVE Antibody Screen Negative 08/29/17 08/29/17 08/29/17 17:09 20:07 20:07 WBC 13.3 H RBC 3.44 L Hgb 10.9 L Hct 32.6 L MCV 94.9 MCH 31.7 H MCHC 33.4 RDW 13.5 Plt Count 147 MPV 10.5 PT INR APTT Sodium 138 Potassium 3.9 Chloride 102 Carbon Dioxide 23 Anion Gap 17 BUN 11 Creatinine 0.6 L Est GFR ( Amer) > 60 Est GFR (Non-Af Amer) > 60 POC Glucose (mg/dL) Random Glucose 239 H Calcium 8.4 L Total Bilirubin 0.3 AST 26 ALT 27 Alkaline Phosphatase 62 Total Protein 6.2 L Albumin 3.4 L Globulin 2.8 Albumin/Globulin Ratio 1.2 Fluid Type Synovial fluid Synovial WBC 243.0 H Synovial RBC 6075.0 H Synovial Neutrophils 76.0 H Synovial Lymphocytes 22.0 H Synov Monos/Macrophage TEST NOT PERFORMED Synovial Fluid Comment Blood Type Antibody Screen 08/29/17 08/29/17 20:07 22:00 WBC RBC Hgb Hct MCV MCH MCHC RDW Plt Count MPV PT INR APTT Sodium Potassium Chloride Carbon Dioxide Anion Gap BUN Creatinine Est GFR ( Amer) Est GFR (Non-Af Amer) POC Glucose (mg/dL) 269 H 225 H Random Glucose Calcium Total Bilirubin AST ALT Alkaline Phosphatase Total Protein Albumin Globulin Albumin/Globulin Ratio Fluid Type Synovial WBC Synovial RBC Synovial Neutrophils Synovial Lymphocytes Synov Monos/Macrophage Synovial Fluid Comment Blood Type Antibody Screen
[2017-08-30] MEDS: ceFAZolin IV 2 gm in Dextrose 2 GM/50 ML BAG IVPB SCH ×2 (00:42→09:49)
[2017-08-30] MEDS: HYDROmorphone 1 mg/ml ISec IVP PRN ×3 (09:48→19:14)
[2017-08-30] MEDS: Sodium Chloride 0.9% 1,000 ML IV SCH ×3 (09:48→22:05)
[2017-08-30] MEDS: Enoxaparin 40 mg Syringe SC SCH (09:56)
[2017-08-30] MEDS: Metoprolol Succinate 50 mg XL Tab PO SCH ×2 (09:56→18:12)
--- NOTE | 2017-08-30 10:08 | PCM.SURG1 ---
Surgeon's Initial Post Op Note - Surgeon's Notes Surgeon: Adam Payton MD [facility] Technician: Arlene Puga PA-C Type of Anesthesia: General Endo, [facility] Pre-Operative Diagnosis: Left knee #1 DJD. #2 inflamatory synovitis. #3 varus deformity. #4 10 deg flexion contracture Operative Findings: Left knee #1 DJD. #2 inflamatory synovitis. #3 varus deformity. #4 10 deg flexion contracture Post-Operative Diagnosis: Left knee #1 DJD. #2 inflamatory synovitis. #3 varus deformity. #4 10 deg flexion contracture Operation Performed: Left knee #1 total knee arthroplasty. #2 open synovectomy Specimen/Specimens Removed: specimen= ciro cuts to pathology per hospital protocol. complications= none. tourniquet time= 108 min at 300mmHg. implants = Medacta GMK PS total knee system, size 4N distal femur cemented, size 4 tibial baseplate cemented, size 4 poly spacer 14mm thickess, size 2 cemented patellar button. Biomet cement Estimated Blood Loss: EBL {In ML}: 50 Blood Products Given: N/A Drains Used: No Drains Post-Op Condition: Good Date of Surgery/Procedure: 08/29/17 Time of Surgery/Procedure: 18:00
[2017-08-30 11:32] LABS: BASO % 0.4 % (0.0-2.0); EOS # 0.1 K/uL (0.0-0.7); EOS % 1.2 % (0.0-4.0); HEMOGLOBIN 9.8 g/dL (11.0-16.0); LYMPH # 1.2 K/uL (1.0-4.3); LYMPH % 12.2 % (20.0-40.0); MEAN CELL VOLUME 95.5 fL (81.0-99.0); MEAN CORPUSCULAR HEMOGLOBIN 32.7 pg (27.0-31.0); MEAN CORPUSCULAR HGB CONC 34.3 g/dL (33.0-37.0); MEAN PLATELET VOLUME 11.3 fL (7.2-11.7); MONO # 0.9 K/uL (0.0-0.8); MONO % 9.7 % (0.0-10.0); NEUT # 7.3 K/uL (1.8-7.0); NEUT % 76.5 % (50.0-75.0); RED CELL DISTRIBUTION WIDTH 13.7 % (11.5-14.5); WHITE BLOOD COUNT 9.6 K/uL (4.8-10.8)
[2017-08-30 11:43] LABS: ALB/GLOB RATIO 1.1 (1.0-2.1); ALBUMIN 3.3 g/dL (3.5-5.0); ALT/SGPT 22 U/L (9-52); AST/SGOT 23 U/L (14-36); BLOOD UREA NITROGEN 5 mg/dL (7-17); CALCIUM 8.4 mg/dl (8.6-10.4); GFR AFRICAN-AMERICAN > 60; GFR NON-AFRICAN AMERICAN > 60
--- NOTE | 2017-08-30 17:46 | CP.PCM.PN ---
Subjective - Date & Time of Evaluation Date of Evaluation: 08/30/17 Time of Evaluation: 10:00 - Subjective Subjective: clinically same Objective - Vital Signs/Intake and Output Vital Signs (last 24 hours): Temp Pulse Resp BP Pulse Ox 99.3 F 110 H 20 132/78 99 08/30/17 15:05 08/30/17 15:05 08/30/17 15:05 08/30/17 15:05 08/30/17 15:05 Intake and Output: 08/30/17 08/30/17 06:59 18:59 Intake Total 970 1020 Output Total 1395 880 Balance -425 140 - Medications Medications: Current Medications Acetaminophen (Tylenol 325mg Tab) 650 mg PO Q4 PRN PRN Reason: Fever 101 degrees fahrenheit Enoxaparin Sodium (Lovenox) 40 mg SC DAILY [facility] Last Admin: 08/30/17 09:56 Dose: 40 mg Hydromorphone HCl (Dilaudid) 1 mg IVP Q4H PRN PRN Reason: Pain, severe (8-10) Last Admin: 08/30/17 15:06 Dose: 1 mg Sodium Chloride (Sodium Chloride 0.9%) 1,000 mls @ 90 mls/hr IV .[id number] [facility] Last Admin: 08/30/17 09:48 Dose: 90 mls/hr Insulin Detemir (Levemir) 15 unit SC [facility] Metformin HCl (Glucophage) 1,000 mg PO BID [facility] Last Admin: 08/30/17 09:56 Dose: 1,000 mg Metoprolol Succinate (Toprol Xl) 50 mg PO BID [facility] Last Admin: 08/30/17 09:56 Dose: 50 mg Ondansetron HCl (Zofran Inj) 4 mg IVP ONCE PRN PRN Reason: Nausea/Vomiting Oxycodone/Acetaminophen (Percocet 5/325 Mg Tab) 2 tab PO Q4H PRN PRN Reason: Pain, severe (8-10) Stop: 09/01/17 19:03 Rosuvastatin Calcium (Crestor) 5 mg PO [facility] - Labs Labs: 08/30/17 11:19 08/30/17 11:19 PT 10.4 SECONDS (9.7-12.2) 08/29/17 09:46 INR 0.9 08/29/17 09:46 APTT 26 SECONDS (21-34) 08/29/17 09:46 - Constitutional Appears: Well - Head Exam Head Exam: ATRAUMATIC, NORMAL INSPECTION, NORMOCEPHALIC - Eye Exam Eye Exam: EOMI, Normal appearance, PERRL Pupil Exam: NORMAL ACCOMODATION, PERRL - ENT Exam ENT Exam: Mucous Membranes Moist, Normal Exam - Neck Exam Neck Exam: Full ROM, Normal Inspection. absent: Lymphadenopathy - Respiratory Exam Respiratory Exam: Decreased Breath Sounds - Cardiovascular Exam Cardiovascular Exam: REGULAR RHYTHM, +S1, +S2 - GI/Abdominal Exam GI & Abdominal Exam: Soft, Diminished Bowel Sounds - Rectal Exam Rectal Exam: Deferred Assessment and Plan - Assessment and Plan (Free Text) Plan: Hemoglobin is 9.8 patient has CPM machine patient has a day and also on the left side Status post orthopedic Pain medicines No need for antibiotic We will monitor the hemoglobin Patient is on Lovenox Continue as ordered
[2017-08-30] MEDS: Insulin Detemir 100 units/ml Vial (Levemir) SC SCH (22:06)
[2017-08-31] MEDS: Metoprolol Succinate 50 mg XL Tab PO SCH ×2 (10:14→18:07)
[2017-08-31] MEDS: Enoxaparin 40 mg Syringe SC SCH (10:14)
[2017-08-31 10:51] LABS: EOS # 0.3 K/uL (0.0-0.7); EOS % 2.2 % (0.0-4.0); LYMPH # 1.8 K/uL (1.0-4.3); MEAN CORPUSCULAR HGB CONC 33.9 g/dL (33.0-37.0); MONO # 1.2 K/uL (0.0-0.8)
[2017-08-31 10:59] LABS: BASO # 0.1 K/uL (0.0-0.2); BASO % 0.5 % (0.0-2.0); HEMOGLOBIN 9.1 g/dL (11.0-16.0); LYMPH % 15.6 % (20.0-40.0); MEAN CELL VOLUME 95.7 fL (81.0-99.0); MEAN CORPUSCULAR HEMOGLOBIN 32.4 pg (27.0-31.0); MEAN PLATELET VOLUME 11.7 fL (7.2-11.7); MONO % 10.1 % (0.0-10.0); NEUT # 8.3 K/uL (1.8-7.0); NEUT % 71.6 % (50.0-75.0); RBC 2.8 Mil/uL (3.80-5.20); RED CELL DISTRIBUTION WIDTH 13.6 % (11.5-14.5); WHITE BLOOD COUNT 11.6 K/uL (4.8-10.8)
[2017-08-31 11:09] LABS: ALT/SGPT 18 U/L (9-52); AST/SGOT 25 U/L (14-36); BLOOD UREA NITROGEN 6 mg/dL (7-17)
[2017-08-31 11:18] LABS: ALB/GLOB RATIO 1.1 (1.0-2.1); ALBUMIN 3.5 g/dL (3.5-5.0); CALCIUM 9.1 mg/dl (8.6-10.4); GFR AFRICAN-AMERICAN > 60; GFR NON-AFRICAN AMERICAN > 60
--- NOTE | 2017-08-31 15:57 | CP.PCM.CON ---
History of Present Illness - History of Present Illness History of Present Illness: 67 yo female admitted for severe oa left knee requiring left TKR pmh- dm, htn , oa, CAD surg- cabg right knee TKR Review of Systems - Constitutional Constitutional: As Per HPI - EENT Eyes: absent: As Per HPI, Blind Spots, Blurred Vision, Change in Vision, Decreased Night Vision, Diplopia, Discharge, Dry Eye, Exophthalmos, Floaters, Irritation, Itchy Eyes, Loss of Peripheral Vision, Pain, Photophobia, Requires Corrective Lenses, Sees Flashes, Spots in Vision, Tunnel Vision, Other Visual Disturbances, Loss of Vision, Other Ears: absent: As Per HPI, Decreased Hearing, Ear Discharge, Ear Pain, Tinnitus, Abnormal Hearing, Disequilibrium, Dizziness, Other - Breasts Breasts: absent: As Per HPI, Change in Shape, Mass, Pain, Nipple Discharge, Nipple Inversion, Skin Changes, Swelling, Other - Cardiovascular Cardiovascular: absent: As Per HPI, Acrocyanosis, Chest Pain, Chest Pain at Rest , Chest Pain with Activity, Claudication, Diaphoresis, Dyspnea, Dyspnea on Exertion, Edema, Irregular Heart Rhythm, Pain Radiating to Arm/Neck/Jaw, Leg Edema, Leg Ulcers, Lightheadedness, Orthopnea, Palpitations, Paroxysmal Nocturnal Dyspnea, Pedal Edema, Radiating Pain, Rapid Heart Rate, Slow Heart Rate, Syncope, Other - Respiratory Respiratory: absent: As Per HPI, Cough, Dyspnea, Hemoptysis, Dyspnea on Exertion , Wheezing, Snoring, Stridor, Pain on Inspiration, Chest Congestion, Excessive Mucous Production, Change in Mucous Color, Pain with Coughing, Other - Gastrointestinal Gastrointestinal: absent: As Per HPI, Abdominal Pain, Belching, Bloating, Change in Bowel Habits, Change in Stool Character, Coffee Ground Emesis, Constipation, Cramping, Diarrhea, Dyspepsia, Dysphagia, Early Satiety, Excessive Flatus, Fecal Incontinence, Heartburn, Hematemesis, Hematochezia, Loose Stools, Melena, Nausea, Odynophagia, Temesmus, Vomiting, Other - Genitourinary Genitourinary: absent: As Per HPI, Change in Urinary Stream, Difficulty Urinating, Dysuria, Flank Pain, Hematuria, Pyuria, Nocturia, Urinary Incontinence, Urinary Frequency, Urinary Hesitance, Urinary Urgency, Voiding Freq/Small Amts, Freq UTI, Hx Renal/Bladder Calculi, Hx /Renal Surgery, Bladder Distension, Other - Reproductive: Female Reproductive:Female: absent: As Per HPI, Amenorrhea, Amenorrhea/ Control, Currently Menstual, Cycle <21 Days, Cycle >35 Days, Cycle Variable, Menses 1-7 Days, Menses >/= 8 Days, Menses Variable, Cycle > 4 Weeks Between, No Menses for 6 Months, Heavy Menses, Light Menses, Normal Menses, Spotting Between Cycles , S/P Hysterectomy, Menopausal, Post Menopausal, Premenarche, Abnormal Vaginal Bleeding, Dysmenorrhea, Dyspareunia, Genital Lesions, Genital Pruritis, Pelvic Pain, Prolapse Symptoms, Sexual Dysfunction, Vaginal Discharge, Vaginal Dryness , Vaginal Odor, Vaginal Pruritis, Other - Menstruation Menstruation: absent: As Per HPI, Amenorrhea, Amenorrhea/ Control, Currently Menstual, Cycle <21 Days, Cycle >35 Days, Cycle Variable, Menses 1-7 Days, Menses >/= 8 Days, Menses Variable, Cycle > 4 Weeks Between, No Menses for 6 Months, Heavy Menses, Light Menses, Normal Menses, Spotting Between Cycles , S/P Hysterectomy, Menopausal, Post Menopausal, Premenarche, Abnormal Vaginal Bleeding, Dysmenorrhea, Other - Musculoskeletal Musculoskeletal: As Per HPI - Integumentary Integumentary: absent: As Per HPI, Acne, Alopecia, Bleeding Lesions, Change in Hair, Change in Nails, Change in Pigmentation, Changing Lesions, Dry Skin, Erythema, Furuncle, Hirsutism, Lesions, New Lesions, Non-Healing Lesions, Photosensitivity, Pruritus, Rash, Skin Pain, Skin Ulcer, Sores, Striae, Swelling , Unusual Bruising, Wounds, Jaundice, Other - Neurological Neurological: absent: As Per HPI, Abnormal Gait, Abnormal Hearing, Abnormal Movements, Abnormal Speech, Behavioral Changes, Burning Sensations, Confusion, Convulsions, Disequilibrium, Dizziness, Numbness, Focal Weakness, Frequent Falls , Headaches, Lack of Coordination, Loss of Vision, Memory Loss, Paresthesias, Radicular Pain, Restless Legs, Sensory Deficit, Syncope, Tingling, Tremor, Vertigo, Weakness, Other Visual Disturbances, Other - Psychiatric Psychiatric: absent: As Per HPI, Abnormal Sleep Pattern, Anhedonia, Anxiety, Auditory Hallucinations, Behavioral Changes, Change in Appetite, Change in Libido, Confusion, Depression, Difficulty Concentrating, Hallucinations, Homicidal Ideation, Hopelessness, Irritability, Memory Loss, Mood Swings, Panic Attacks, Paranoia, Suicidal Ideation, Visual Hallucinations, Tactile Hallucinations, Other - Endocrine Endocrine: absent: As Per HPI, Change in Body Appearance, Change in Libido, Cold Intolorance, Deepening of Voice, Excessive Sweating, Fatigue, Flushing, Heat Intolorance, Increase in Ring/Shoe/Hat Size, Palpitations, Polydipsia, Polyphagia, Polyuria, Other - Hematologic/Lymphatic Hematologic: absent: As Per HPI, Easy Bleeding, Easy Bruising, Lymphadenopathy, Other Past Patient History - Past Medical History & Family History Past Medical History?: Yes - Past Social History Smoking Status: Current Some Days Smoker - CARDIAC Hx Cardiac Disorders: Yes (CAD, CABGx2 2013) Hx Hypercholesterolemia: Yes Hx Hypertension: Yes - PULMONARY Hx Respiratory Disorders: No - NEUROLOGICAL Hx Neurological Disorder: No - HEENT Hx HEENT Problems: Yes Hx Cataracts: Yes - RENAL Hx Chronic Kidney Disease: No - ENDOCRINE/METABOLIC Hx Diabetes Mellitus Type 2: Yes - HEMATOLOGICAL/ONCOLOGICAL Hx Blood Disorders: No - INTEGUMENTARY Hx Dermatological Problems: No - MUSCULOSKELETAL/RHEUMATOLOGICAL Hx Arthritis: Yes - GASTROINTESTINAL Hx Gastrointestinal Disorders: Yes Hx Hemorrhoids: Yes - GENITOURINARY/GYNECOLOGICAL Hx Genitourinary Disorders: No - PSYCHIATRIC Hx Psychophysiologic Disorder: No Hx Substance Use: No - SURGICAL HISTORY Hx Surgeries: Yes Hx Cataract Extraction: Yes (BILAT.) Hx Coronary Artery Bypass Graft: Yes (X2) Hx Open Heart Surgery: Yes Hx Orthopedic Surgery: Yes Other/Comment: HX: LEFT KNEE CYST REMOVED. HX: RIGHT THIGH BOIL I & D. HX: TOTAL RIGHT KNEE REPLACEMENT(03/07/17) - ANESTHESIA Hx Anesthesia: Yes Hx Anesthesia Reactions: No Hx Malignant Hyperthermia: No Meds Allergies/Adverse Reactions: Allergies Allergy/AdvReac Type Severity Reaction Status Date / Time No Known Allergies Allergy Verified 08/26/17 10:42 - Medications Medications: Current Medications Acetaminophen (Tylenol 325mg Tab) 650 mg PO Q4 PRN PRN Reason: Fever 101 degrees fahrenheit Last Admin: 08/31/17 00:05 Dose: 650 mg Enoxaparin Sodium (Lovenox) 40 mg SC DAILY [facility] Last Admin: 08/31/17 10:14 Dose: 40 mg Hydromorphone HCl (Dilaudid) 1 mg IVP Q4H PRN PRN Reason: Pain, severe (8-10) Last Admin: 08/31/17 13:12 Dose: 1 mg Sodium Chloride (Sodium Chloride 0.9%) 1,000 mls @ 90 mls/hr IV .Q11H7M [facility] Last Admin: 08/30/17 22:05 Dose: 90 mls/hr Insulin Detemir (Levemir) 15 unit SC [facility] Last Admin: 08/30/17 22:06 Dose: 15 unit Metformin HCl (Glucophage) 1,000 mg PO BID [facility] Last Admin: 08/31/17 10:15 Dose: 1,000 mg Metoprolol Succinate (Toprol Xl) 50 mg PO BID [facility] Last Admin: 08/31/17 10:14 Dose: 50 mg Ondansetron HCl (Zofran Inj) 4 mg IVP ONCE PRN PRN Reason: Nausea/Vomiting Oxycodone/Acetaminophen (Percocet 5/325 Mg Tab) 2 tab PO Q4H PRN PRN Reason: Pain, severe (8-10) Stop: 09/01/17 19:03 Rosuvastatin Calcium (Crestor) 5 mg PO [facility] Last Admin: 08/30/17 22:04 Dose: 5 mg Physical Exam - Constitutional Appears: Non-toxic, Chronically Ill - Head Exam Head Exam: NORMOCEPHALIC - Eye Exam Eye Exam: PERRL. absent: Scleral icterus - ENT Exam ENT Exam: Mucous Membranes Dry, Normal Oropharynx - Neck Exam Neck exam: Negative for: Lymphadenopathy - Respiratory Exam Respiratory Exam: Decreased Breath Sounds - Cardiovascular Exam Cardiovascular Exam: REGULAR RHYTHM, +S1, +S2 - GI/Abdominal Exam GI & Abdominal Exam: Diminished Bowel Sounds, Soft. absent: Tenderness - Rectal Exam Rectal Exam: Deferred - Exam Exam: NORMAL INSPECTION - Extremities Exam Extremities exam: Positive for: pedal edema, tenderness, pedal pulses present. Negative for: calf tenderness Additional comments: left knee decreased rom - Back Exam Back exam: absent: CVA tenderness (L), CVA tenderness (R) - Neurological Exam Neurological exam: Alert, CN II-XII Intact, Oriented x3, Reflexes Normal - Psychiatric Exam Psychiatric exam: Normal Mood Results - Vital Signs Recent Vital Signs: Last Vital Signs Temp 99.1 F 03/11/18 08:52 Pulse 103 H 08/31/17 08:52 Resp 20 08/31/17 08:52 BP 100/65 08/31/17 08:52 Pulse Ox 95 08/31/17 08:52 - Labs Result Diagrams: 08/31/17 10:47 08/31/17 10:47 Labs: Laboratory Results - last 24 hr 08/30/17 08/30/17 08/31/17 17:13 21:13 06:24 WBC RBC Hgb Hct MCV MCH MCHC RDW Plt Count MPV Neut % (Auto) Lymph % (Auto) Aiken % (Auto) Eos % (Auto) Baso % (Auto) Neut # (Auto) Lymph # (Auto) Aiken # (Auto) Eos # (Auto) Baso # (Auto) Differential Comment Sodium Potassium Chloride Carbon Dioxide Anion Gap BUN Creatinine Est GFR ( Amer) Est GFR (Non-Af Amer) POC Glucose (mg/dL) 179 H 194 H 160 H Random Glucose Calcium Total Bilirubin AST ALT Alkaline Phosphatase Total Protein Albumin Globulin Albumin/Globulin Ratio 08/31/17 08/31/17 08/31/17 10:47 10:47 10:47 WBC 11.6 H RBC 2.80 L Hgb 9.1 L Hct 26.8 L MCV 95.7 MCH 32.4 H MCHC 33.9 RDW 13.6 Plt Count 126 L MPV 11.7 Neut % (Auto) 71.6 Lymph % (Auto) 15.6 L Aiken % (Auto) 10.1 H Eos % (Auto) 2.2 Baso % (Auto) 0.5 Neut # (Auto) 8.3 H Lymph # (Auto) 1.8 Aiken # (Auto) 1.2 H Eos # (Auto) 0.3 Baso # (Auto) 0.1 Differential Comment Sodium 137 Potassium 4.2 Chloride 99 Carbon Dioxide 27 Anion Gap 16 BUN 6 L Creatinine 0.6 L Est GFR ( Amer) > 60 Est GFR (Non-Af Amer) > 60 POC Glucose (mg/dL) 187 H Random Glucose 177 H Calcium 9.1 Total Bilirubin 0.6 AST 25 ALT 18 Alkaline Phosphatase 52 Total Protein 6.8 Albumin 3.5 Globulin 3.2 Albumin/Globulin Ratio 1.1 Assessment & Plan (1) CAD (coronary artery disease) Status: Acute (2) HTN (hypertension) Status: Acute (3) Primary osteoarthritis of right knee Status: Acute - Assessment and Plan (Free Text) Assessment: stable s/p left TKR low grade fever no signs of infection
--- NOTE | 2017-08-31 16:14 | CP.PCM.PN ---
Subjective - Date & Time of Evaluation Date of Evaluation: 08/31/17 Time of Evaluation: 11:10 - Subjective Subjective: clinically same Objective - Vital Signs/Intake and Output Vital Signs (last 24 hours): Temp Pulse Resp BP Pulse Ox 99.7 F H 104 H 18 103/64 94 L 08/31/17 15:30 08/31/17 15:30 08/31/17 15:30 08/31/17 15:30 08/31/17 15:30 Intake and Output: 08/31/17 08/31/17 06:59 18:59 Intake Total 400 Output Total 350 Balance 50 - Medications Medications: Current Medications Acetaminophen (Tylenol 325mg Tab) 650 mg PO Q4 PRN PRN Reason: Fever 101 degrees fahrenheit Last Admin: 08/31/17 00:05 Dose: 650 mg Cephalexin Monohydrate (Keflex) 500 mg PO Q6H [facility] PRN Reason: Protocol Enoxaparin Sodium (Lovenox) 40 mg SC DAILY [facility] Last Admin: 08/31/17 10:14 Dose: 40 mg Hydromorphone HCl (Dilaudid) 1 mg IVP Q4H PRN PRN Reason: Pain, severe (8-10) Last Admin: 08/31/17 13:12 Dose: 1 mg Sodium Chloride (Sodium Chloride 0.9%) 1,000 mls @ 90 mls/hr IV .Q11H7M [facility] Last Admin: 08/30/17 22:05 Dose: 90 mls/hr Insulin Detemir (Levemir) 15 unit SC [facility] Last Admin: 08/30/17 22:06 Dose: 15 unit Metformin HCl (Glucophage) 1,000 mg PO BID [facility] Last Admin: 08/31/17 10:15 Dose: 1,000 mg Metoprolol Succinate (Toprol Xl) 50 mg PO BID [facility] Last Admin: 08/31/17 10:14 Dose: 50 mg Ondansetron HCl (Zofran Inj) 4 mg IVP ONCE PRN PRN Reason: Nausea/Vomiting Oxycodone/Acetaminophen (Percocet 5/325 Mg Tab) 2 tab PO Q4H PRN PRN Reason: Pain, severe (8-10) Stop: 09/01/17 19:03 Rosuvastatin Calcium (Crestor) 5 mg PO [facility] Last Admin: 08/30/17 22:04 Dose: 5 mg - Labs Labs: 08/31/17 10:47 08/31/17 10:47 PT 10.4 SECONDS (9.7-12.2) 08/29/17 09:46 INR 0.9 08/29/17 09:46 APTT 26 SECONDS (21-34) 08/29/17 09:46 - Constitutional Appears: Well - Head Exam Head Exam: ATRAUMATIC, NORMAL INSPECTION, NORMOCEPHALIC - Eye Exam Eye Exam: EOMI, Normal appearance, PERRL Pupil Exam: NORMAL ACCOMODATION, PERRL - ENT Exam ENT Exam: Mucous Membranes Moist, Normal Exam - Neck Exam Neck Exam: Full ROM, Normal Inspection. absent: Lymphadenopathy - Respiratory Exam Respiratory Exam: Decreased Breath Sounds - Cardiovascular Exam Cardiovascular Exam: REGULAR RHYTHM, +S1, +S2 - GI/Abdominal Exam GI & Abdominal Exam: Soft, Diminished Bowel Sounds - Rectal Exam Rectal Exam: Deferred
[2017-08-31 17:23] LABS: SQUAMOUS EPITHIAL 1 /hpf (0-5); URINE BILIRUBIN NEGATIVE (NEGATIVE); URINE BLOOD NEGATIVE (NEGATIVE); URINE CLARITY Clear (Clear); URINE COLOR Yellow (YELLOW); URINE GLUCOSE (UA) 1+ mg/dL (Normal); URINE LEUKOCYTE ESTERASE NEG Leu/uL (Negative); URINE PROTEIN NEGATIVE (NEGATIVE); URINE UROBILINOGEN NORMAL mg/dL (0.2-1.0)
[2017-08-31] MEDS: Insulin Detemir 100 units/ml Vial (Levemir) SC SCH (21:29)
[2017-09-01 00:24] VITALS: RESP 20
[2017-09-01] MEDS: Enoxaparin 40 mg Syringe SC SCH (09:53)
[2017-09-01] MEDS: Metoprolol Succinate 50 mg XL Tab PO SCH ×2 (09:53→21:46)
--- NOTE | 2017-09-01 11:16 | CP.PCM.PN ---
Subjective - Date & Time of Evaluation Date of Evaluation: 09/01/17 Time of Evaluation: 09:00 - Subjective Subjective: t max down doing better afeb cultures neg Objective - Vital Signs/Intake and Output Vital Signs (last 24 hours): Temp Pulse Resp BP Pulse Ox 98.2 F 99 H 20 115/71 97 09/01/17 07:00 09/01/17 07:00 09/01/17 07:00 09/01/17 07:00 09/01/17 07:00 Intake and Output: 09/01/17 09/01/17 06:59 18:59 Intake Total 20 Output Total 400 Balance -380 - Medications Medications: Current Medications Acetaminophen (Tylenol 325mg Tab) 650 mg PO Q4 PRN PRN Reason: Fever 101 degrees fahrenheit Last Admin: 08/31/17 00:05 Dose: 650 mg Cephalexin Monohydrate (Keflex) 500 mg PO Q6H [facility] PRN Reason: Protocol Last Admin: 09/01/17 09:53 Dose: 500 mg Enoxaparin Sodium (Lovenox) 40 mg SC DAILY [facility] Last Admin: 09/01/17 09:53 Dose: 40 mg Hydromorphone HCl (Dilaudid) 1 mg IVP Q4H PRN PRN Reason: Pain, severe (8-10) Last Admin: 09/01/17 10:30 Dose: 1 mg Insulin Detemir (Levemir) 15 unit SC [facility] Last Admin: 08/31/17 21:29 Dose: 15 unit Metformin HCl (Glucophage) 1,000 mg PO BID [facility] Last Admin: 09/01/17 09:53 Dose: 1,000 mg Metoprolol Succinate (Toprol Xl) 50 mg PO BID [facility] Last Admin: 09/01/17 09:53 Dose: 50 mg Ondansetron HCl (Zofran Inj) 4 mg IVP ONCE PRN PRN Reason: Nausea/Vomiting Oxycodone/Acetaminophen (Percocet 5/325 Mg Tab) 2 tab PO Q4H PRN PRN Reason: Pain, severe (8-10) Stop: 09/01/17 19:03 Rosuvastatin Calcium (Crestor) 5 mg PO HS [facility] Last Admin: 08/31/17 21:29 Dose: 5 mg - Labs Labs: 08/31/17 10:47 08/31/17 10:47 PT 10.4 SECONDS (9.7-12.2) 08/29/17 09:46 INR 0.9 08/29/17 09:46 APTT 26 SECONDS (21-34) 08/29/17 09:46 - Constitutional Appears: Non-toxic, Chronically Ill - Head Exam Head Exam: NORMOCEPHALIC - Eye Exam Eye Exam: PERRL - ENT Exam ENT Exam: Mucous Membranes Dry - Neck Exam Neck Exam: absent: Lymphadenopathy - Respiratory Exam Respiratory Exam: Decreased Breath Sounds - Cardiovascular Exam Cardiovascular Exam: REGULAR RHYTHM - GI/Abdominal Exam GI & Abdominal Exam: Distended - Rectal Exam Rectal Exam: Deferred Assessment and Plan (1) CAD (coronary artery disease) Status: Acute (2) HTN (hypertension) Status: Acute (3) Primary osteoarthritis of right knee Status: Acute
[2017-09-01 11:30] LABS: BASO # 0.1 K/uL (0.0-0.2); BASO % 0.6 % (0.0-2.0); EOS # 0.3 K/uL (0.0-0.7); EOS % 2.5 % (0.0-4.0); LYMPH # 2.3 K/uL (1.0-4.3); MEAN CELL VOLUME 95.8 fL (81.0-99.0); MEAN CORPUSCULAR HEMOGLOBIN 32.1 pg (27.0-31.0); MEAN CORPUSCULAR HGB CONC 33.5 g/dL (33.0-37.0); MEAN PLATELET VOLUME 11.8 fL (7.2-11.7); MONO # 1.1 K/uL (0.0-0.8); MONO % 8.6 % (0.0-10.0); NEUT # 8.9 K/uL (1.8-7.0); NEUT % 70.3 % (50.0-75.0); RBC 2.81 Mil/uL (3.80-5.20); RED CELL DISTRIBUTION WIDTH 13.6 % (11.5-14.5); WHITE BLOOD COUNT 12.7 K/uL (4.8-10.8)
[2017-09-01] MEDS ORDERED: HYDROmorphone 1 mg/ml ISec IVP PRN (11:30)
[2017-09-01 11:38] LABS: FLUID CRYSTALS POSITIVE (NEGATIVE)
[2017-09-01 11:43] LABS: ALB/GLOB RATIO 1.1 (1.0-2.1); ALBUMIN 3.5 g/dL (3.5-5.0); ALT/SGPT 23 U/L (9-52); AST/SGOT 22 U/L (14-36); BLOOD UREA NITROGEN 7 mg/dL (7-17); CALCIUM 9.4 mg/dl (8.6-10.4); GFR AFRICAN-AMERICAN > 60; GFR NON-AFRICAN AMERICAN > 60
--- NOTE | 2017-09-01 15:46 | CP.PCM.PN ---
Subjective - Date & Time of Evaluation Date of Evaluation: 09/01/17 Time of Evaluation: 12:00 - Subjective Subjective: clinically same Objective - Vital Signs/Intake and Output Vital Signs (last 24 hours): Temp Pulse Resp BP Pulse Ox 98.2 F 99 H 20 115/71 97 09/01/17 07:00 09/01/17 07:00 09/01/17 07:00 09/01/17 07:00 09/01/17 07:00 Intake and Output: 09/01/17 09/01/17 06:59 18:59 Intake Total 20 350 Output Total 400 400 Balance -380 -50 - Medications Medications: Current Medications Acetaminophen (Tylenol 325mg Tab) 650 mg PO Q4 PRN PRN Reason: Fever 101 degrees fahrenheit Last Admin: 08/31/17 00:05 Dose: 650 mg Cephalexin Monohydrate (Keflex) 500 mg PO Q6H [facility] PRN Reason: Protocol Last Admin: 09/01/17 09:53 Dose: 500 mg Enoxaparin Sodium (Lovenox) 40 mg SC DAILY [facility] Last Admin: 09/01/17 09:53 Dose: 40 mg Hydromorphone HCl (Dilaudid) 1 mg IVP Q4H PRN PRN Reason: Pain, severe (8-10) Insulin Detemir (Levemir) 15 unit SC [facility] Last Admin: 08/31/17 21:29 Dose: 15 unit Metformin HCl (Glucophage) 1,000 mg PO BID [facility] Last Admin: 09/01/17 09:53 Dose: 1,000 mg Metoprolol Succinate (Toprol Xl) 50 mg PO BID [facility] Last Admin: 09/01/17 09:53 Dose: 50 mg Ondansetron HCl (Zofran Inj) 4 mg IVP ONCE PRN PRN Reason: Nausea/Vomiting Oxycodone/Acetaminophen (Percocet 5/325 Mg Tab) 2 tab PO Q4H PRN PRN Reason: Pain, severe (8-10) Stop: 09/01/17 19:03 Rosuvastatin Calcium (Crestor) 5 mg PO HS [facility] Last Admin: 08/31/17 21:29 Dose: 5 mg - Labs Labs: 09/01/17 11:15 09/01/17 11:15 PT 10.4 SECONDS (9.7-12.2) 08/29/17 09:46 INR 0.9 08/29/17 09:46 APTT 26 SECONDS (21-34) 08/29/17 09:46 - Constitutional Appears: Well - Head Exam Head Exam: ATRAUMATIC, NORMAL INSPECTION, NORMOCEPHALIC - Eye Exam Eye Exam: EOMI, Normal appearance, PERRL Pupil Exam: NORMAL ACCOMODATION, PERRL - ENT Exam ENT Exam: Mucous Membranes Moist, Normal Exam - Neck Exam Neck Exam: Full ROM, Normal Inspection. absent: Lymphadenopathy - Respiratory Exam Respiratory Exam: Decreased Breath Sounds - Cardiovascular Exam Cardiovascular Exam: REGULAR RHYTHM, +S1, +S2 - GI/Abdominal Exam GI & Abdominal Exam: Soft, Diminished Bowel Sounds - Rectal Exam Rectal Exam: Deferred
[2017-09-01] MEDS: Insulin Detemir 100 units/ml Vial (Levemir) SC SCH (21:46)
--- NOTE | 2017-09-02 01:28 | CP.PCM.PN ---
Subjective - Date & Time of Evaluation Date of Evaluation: 08/31/17 Time of Evaluation: 15:00 - Subjective Subjective: Pt lying in bed resting comfortably. Pain rated 3/10 denies sob,cp, domínguez, n&v, fevers, chills, numbness, tingling Objective - Vital Signs/Intake and Output Vital Signs (last 24 hours): Temp Pulse Resp BP Pulse Ox 99.6 F 108 H 20 117/75 96 09/01/17 15:35 09/01/17 21:47 09/01/17 15:35 09/01/17 21:47 09/01/17 15:35 Intake and Output: 09/01/17 09/02/17 18:59 06:59 Intake Total 350 320 Output Total 400 Balance -50 320 - Medications Medications: Current Medications Acetaminophen (Tylenol 325mg Tab) 650 mg PO Q4 PRN PRN Reason: Fever 101 degrees fahrenheit Last Admin: 08/31/17 00:05 Dose: 650 mg Cephalexin Monohydrate (Keflex) 500 mg PO Q6H [facility] PRN Reason: Protocol Last Admin: 09/01/17 21:49 Dose: 500 mg Enoxaparin Sodium (Lovenox) 40 mg SC DAILY [facility] Last Admin: 09/01/17 09:53 Dose: 40 mg Hydromorphone HCl (Dilaudid) 1 mg IVP Q4H PRN PRN Reason: Pain, severe (8-10) Last Admin: 09/02/17 01:11 Dose: 1 mg Insulin Detemir (Levemir) 15 unit SC [facility] Last Admin: 09/01/17 21:46 Dose: 15 unit Lactulose (Enulose) 20 gm PO BID [facility] Metformin HCl (Glucophage) 1,000 mg PO BID [facility] Last Admin: 09/01/17 17:04 Dose: 1,000 mg Metoprolol Succinate (Toprol Xl) 50 mg PO BID [facility] Last Admin: 09/01/17 21:46 Dose: 50 mg Ondansetron HCl (Zofran Inj) 4 mg IVP ONCE PRN PRN Reason: Nausea/Vomiting Rosuvastatin Calcium (Crestor) 5 mg PO [facility] Last Admin: 09/01/17 21:46 Dose: 5 mg - Labs Labs: 09/01/17 11:15 09/01/17 11:15 PT 10.4 SECONDS (9.7-12.2) 08/29/17 09:46 INR 0.9 08/29/17 09:46 APTT 26 SECONDS (21-34) 08/29/17 09:46 - Extremities Exam Additional comments: Right Lower Extremity: surgical wound well healed, -ttp, -warmth/swelling/ redness ROM= 0-125 w/o pain no instability +5/5 motor strength hip flex/ext, knee flex/ext, ankle df/pf, toes up & down sensory intact L2-S1, DPN/TN/SPN/SN 2+ DP, BCR all toes Left Lower Extremity: surgical dressing c/d/i, drain removed no ttp ROM= 0-45, limited by pain +5/5 motor strength hip flex/ext, knee flex/ext, ankle df/pf, toes up & down sensory intact L2-S1, DPN/TN/SPN/SN 2+ DP, BCR all toes Assessment and Plan (1) Primary osteoarthritis of left knee Assessment & Plan: 67 yo F w/ longstanding L knee pain and dysfunction Dx= L knee #1 DJD #2 inflamatory synovitis #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 #4 varus deformity s/p L knee total knee arthroplasty 08/29/17 PLAN: L knee: -clinically, progressing well -labs stable -physical therapy= WBAT, no restrictions -pain control -DVT proph -IS -oob as much as possible -CM/SW asses and plan for placement in rehab ([facility] vs [facility]) -ok for dc to rehab as of today -continue to focus with PT and nursing staff on increasing ROM -will follow -medical care per Dr Eugene and Evy -please contact me with any questions, comments, updates at [phone] Adam Payton MD Orthopedic Surgery Status: Acute (2) Primary osteoarthritis of right knee Assessment & Plan: s/p R knee TKA 03/07/17 doing very well Status: Acute
--- NOTE | 2017-09-02 01:40 | CP.PCM.PN ---
Subjective - Date & Time of Evaluation Date of Evaluation: 09/01/17 Time of Evaluation: 09:00 - Subjective Subjective: Pt sitting in chair bedside. Very comfortable. "just walked with therapist" Objective - Vital Signs/Intake and Output Vital Signs (last 24 hours): Temp Pulse Resp BP Pulse Ox 99.6 F 108 H 20 117/75 96 09/01/17 15:35 09/01/17 21:47 09/01/17 15:35 09/01/17 21:47 09/01/17 15:35 Intake and Output: 09/01/17 09/02/17 18:59 06:59 Intake Total 350 320 Output Total 400 Balance -50 320 - Medications Medications: Current Medications Acetaminophen (Tylenol 325mg Tab) 650 mg PO Q4 PRN PRN Reason: Fever 101 degrees fahrenheit Last Admin: 08/31/17 00:05 Dose: 650 mg Cephalexin Monohydrate (Keflex) 500 mg PO Q6H [facility] PRN Reason: Protocol Last Admin: 09/01/17 21:49 Dose: 500 mg Enoxaparin Sodium (Lovenox) 40 mg SC DAILY [facility] Last Admin: 09/01/17 09:53 Dose: 40 mg Hydromorphone HCl (Dilaudid) 1 mg IVP Q4H PRN PRN Reason: Pain, severe (8-10) Last Admin: 09/02/17 01:11 Dose: 1 mg Insulin Detemir (Levemir) 15 unit SC [facility] Last Admin: 09/01/17 21:46 Dose: 15 unit Lactulose (Enulose) 20 gm PO BID [facility] Metformin HCl (Glucophage) 1,000 mg PO BID [facility] Last Admin: 09/01/17 17:04 Dose: 1,000 mg Metoprolol Succinate (Toprol Xl) 50 mg PO BID [facility] Last Admin: 09/01/17 21:46 Dose: 50 mg Ondansetron HCl (Zofran Inj) 4 mg IVP ONCE PRN PRN Reason: Nausea/Vomiting Rosuvastatin Calcium (Crestor) 5 mg PO HS [facility] Last Admin: 09/01/17 21:46 Dose: 5 mg - Labs Labs: 09/01/17 11:15 09/01/17 11:15 PT 10.4 SECONDS (9.7-12.2) 08/29/17 09:46 INR 0.9 08/29/17 09:46 APTT 26 SECONDS (21-34) 08/29/17 09:46 - Extremities Exam Additional comments: Right Lower Extremity: surgical wound well healed, -ttp, -warmth/swelling/ redness ROM= 0-125 w/o pain no instability +5/5 motor strength hip flex/ext, knee flex/ext, ankle df/pf, toes up & down sensory intact L2-S1, DPN/TN/SPN/SN 2+ DP, BCR all toes Left Lower Extremity: surgical dressing c/d/i, drain removed no ttp ROM= 0-45, limited by pain +5/5 motor strength hip flex/ext, knee flex/ext, ankle df/pf, toes up & down sensory intact L2-S1, DPN/TN/SPN/SN 2+ DP, BCR all toes Assessment and Plan (1) Primary osteoarthritis of left knee Assessment & Plan: 67 yo F w/ longstanding L knee pain and dysfunction Dx= L knee #1 DJD #2 inflamatory synovitis #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 #4 varus deformity s/p L knee total knee arthroplasty 08/29/17 POD#3 PLAN: L knee: -clinically, progressing well -labs stable -physical therapy= WBAT, no restrictions -pain control -DVT proph -IS -oob as much as possible -CM/SW asses and plan for placement in rehab ([facility] vs [facility]) -ok for dc to rehab from ortho point of view -continue to focus with PT and nursing staff on increasing ROM -will follow -medical care per Dr Eugene and Evy -please contact me with any questions, comments, updates at [phone] Adam Payton MD Orthopedic Surgery Status: Acute (2) Primary osteoarthritis of right knee Assessment & Plan: s/p TKA Right knee 03/07/17 Doing very well. Pt very pleased with outcome so far. Status: Acute
[2017-09-02 08:24] VITALS: TEMP 98.9
[2017-09-02] MEDS: Metoprolol Succinate 50 mg XL Tab PO SCH (11:06)
[2017-09-02] MEDS: Enoxaparin 40 mg Syringe SC SCH (11:06)
--- NOTE | 2017-09-02 12:28 | CP.PCM.PN ---
Subjective - Date & Time of Evaluation Date of Evaluation: 09/02/17 Time of Evaluation: 08:00 - Subjective Subjective: no fever cultures neg will d/c antibiotic Objective - Vital Signs/Intake and Output Vital Signs (last 24 hours): Temp Pulse Resp BP Pulse Ox 98.9 F 92 H 20 112/72 95 09/02/17 07:00 09/02/17 07:00 09/02/17 07:00 09/02/17 07:00 09/02/17 07:00 Intake and Output: 09/02/17 09/02/17 06:59 18:59 Intake Total 320 Balance 320 - Medications Medications: Current Medications Acetaminophen (Tylenol 325mg Tab) 650 mg PO Q4 PRN PRN Reason: Fever 101 degrees fahrenheit Last Admin: 08/31/17 00:05 Dose: 650 mg Cephalexin Monohydrate (Keflex) 500 mg PO Q6H [facility] TO [facility] PRN Reason: Protocol Last Admin: 09/02/17 11:06 Dose: 500 mg Enoxaparin Sodium (Lovenox) 40 mg SC DAILY [facility] Last Admin: 09/02/17 11:06 Dose: 40 mg Hydromorphone HCl (Dilaudid) 1 mg IVP Q4H PRN PRN Reason: Pain, severe (8-10) Last Admin: 09/02/17 08:38 Dose: 1 mg Insulin Detemir (Levemir) 15 unit SC HS [facility] Last Admin: 09/01/17 21:46 Dose: 15 unit Lactulose (Enulose) 20 gm PO BID [facility] Last Admin: 09/02/17 11:06 Dose: Not Given Metformin HCl (Glucophage) 1,000 mg PO BID [facility] Last Admin: 09/02/17 11:05 Dose: 1,000 mg Metoprolol Succinate (Toprol Xl) 50 mg PO BID [facility] Last Admin: 09/02/17 11:06 Dose: 50 mg Ondansetron HCl (Zofran Inj) 4 mg IVP ONCE PRN PRN Reason: Nausea/Vomiting Rosuvastatin Calcium (Crestor) 5 mg PO HS [facility] Last Admin: 09/01/17 21:46 Dose: 5 mg - Labs Labs: 09/01/17 11:15 09/01/17 11:15 PT 10.4 SECONDS (9.7-12.2) 03/09/18 09:46 INR 0.9 08/29/17 09:46 APTT 26 SECONDS (21-34) 08/29/17 09:46 - Constitutional Appears: Non-toxic, Chronically Ill - Head Exam Head Exam: NORMOCEPHALIC - Eye Exam Eye Exam: PERRL - ENT Exam ENT Exam: Mucous Membranes Dry - Neck Exam Neck Exam: absent: Lymphadenopathy - Respiratory Exam Respiratory Exam: Decreased Breath Sounds - Cardiovascular Exam Cardiovascular Exam: REGULAR RHYTHM - GI/Abdominal Exam GI & Abdominal Exam: Distended Assessment and Plan (1) CAD (coronary artery disease) Status: Acute (2) HTN (hypertension) Status: Acute (3) Primary osteoarthritis of right knee Status: Acute
[2017-09-02] MEDS ORDERED: HYDROmorphone 1 mg/ml ISec IVP PRN (13:00)
--- NOTE | 2017-09-02 15:02 | CP.PCM.PN ---
Subjective - Date & Time of Evaluation Date of Evaluation: 09/02/17 Time of Evaluation: 14:50 - Subjective Subjective: [employer] NOTES 67 yr old female with Left knee DJD. and inflamatory synovitis. s/p L knee total knee arthroplasty 08/29/17 Patient seen today , denies any chest pain sob, tolerating PT Patient accepted at [facility] FOR REHAB Discussed with Dr. Fly sheets , stable for discharge to [facility] Discharge plan discussed with patient , who understands and agrees with plan Objective - Vital Signs/Intake and Output Vital Signs (last 24 hours): Temp Pulse Resp BP Pulse Ox 98.9 F 92 H 20 112/72 95 09/02/17 07:00 09/02/17 07:00 09/02/17 07:00 09/02/17 07:00 09/02/17 07:00 Intake and Output: 09/02/17 09/02/17 06:59 18:59 Intake Total 320 522 Output Total 700 Balance 320 -178 - Medications Medications: Current Medications Acetaminophen (Tylenol 325mg Tab) 650 mg PO Q4 PRN PRN Reason: Fever 101 degrees fahrenheit Last Admin: 08/31/17 00:05 Dose: 650 mg Enoxaparin Sodium (Lovenox) 40 mg SC DAILY [facility] Last Admin: 09/02/17 11:06 Dose: 40 mg Hydromorphone HCl (Dilaudid) 1 mg IVP Q4H PRN PRN Reason: Pain, severe (8-10) Last Admin: 09/02/17 12:55 Dose: 1 mg Insulin Detemir (Levemir) 15 unit SC [facility] Last Admin: 09/01/17 21:46 Dose: 15 unit Lactulose (Enulose) 20 gm PO BID [facility] Last Admin: 09/02/17 11:06 Dose: Not Given Metformin HCl (Glucophage) 1,000 mg PO BID [facility] Last Admin: 09/02/17 11:05 Dose: 1,000 mg Metoprolol Succinate (Toprol Xl) 50 mg PO BID [facility] Last Admin: 09/02/17 11:06 Dose: 50 mg Ondansetron HCl (Zofran Inj) 4 mg IVP ONCE PRN PRN Reason: Nausea/Vomiting Rosuvastatin Calcium (Crestor) 5 mg PO [facility] Last Admin: 09/01/17 21:46 Dose: 5 mg - Labs Labs: 09/01/17 11:15 09/01/17 11:15 PT 10.4 SECONDS (9.7-12.2) 08/29/17 09:46 INR 0.9 08/29/17 09:46 APTT 26 SECONDS (21-34) 08/29/17 09:46
[2017-09-02 16:07] VITALS: BP 115/76; PULSE 96; O2SAT 96
--- NOTE | 2017-09-02 16:52 | CP.PCM.PN ---
Subjective - Date & Time of Evaluation Date of Evaluation: 09/02/17 Objective - Vital Signs/Intake and Output Vital Signs (last 24 hours): Temp Pulse Resp BP Pulse Ox 98.9 F 96 H 20 115/76 96 09/02/17 15:00 09/02/17 15:00 09/02/17 15:00 09/02/17 15:00 09/02/17 15:00 Intake and Output: 09/02/17 09/02/17 06:59 18:59 Intake Total 320 522 Output Total 700 Balance 320 -178 - Labs Labs: 09/01/17 11:15 09/01/17 11:15 PT 10.4 SECONDS (9.7-12.2) 08/29/17 09:46 INR 0.9 08/29/17 09:46 APTT 26 SECONDS (21-34) 08/29/17 09:46 Assessment and Plan - Assessment and Plan (Free Text) Plan: Discharge to [facility] as patient is status post knee arthroplasty discussed with the staff continue same patient was seen also that hemoglobin is 9.0 Discharge to TCU
--- NOTE | 2017-09-15 08:18 | OP ---
PROCEDURE DATE: 08/29/2017 PREOPERATIVE DIAGNOSES: 1. Left knee degenerative joint disease. 2. Inflammatory synovitis. 3. Varus deformity. 4. 10-degree flexion contracture. POSTOPERATIVE DIAGNOSES: 1. Left knee degenerative joint disease. 2. Inflammatory synovitis. 3. Varus deformity. 4. 10-degree flexion contracture. PROCEDURE: 1. Left knee, total knee arthroplasty. 2. Open synovectomy. SURGEON: Adam Payton MD AUTO SERVICE REPRESENTATIVE: Arlene Puga PA-C. JUSTIFICATION FOR AUTO SERVICE REPRESENTATIVE: Arlene Puga is a certified physician assistant unit forester, whose skilled surgical service was an absolute necessity for successful completion of the procedure as he provided skilled surgical assistance with positioning of patient, positioning extremity, management of the surgical wynn, retraction of neurovascular structures, preparation of the distal femoral cuts, preparation of proximal tibial cut, preparation of patellar cut, placement of trial implants, soft tissue balancing, resection of soft tissue, open synovectomy, proper cement technique, placement of final implants, wounds closure, placement in postoperative hinge knee brace. Arlene Puga was present for the entire case and was an absolute necessity for the successful completion of the procedure. ANESTHESIA: General endotracheal anesthesia with a postop regional nerve block placed by anesthesia staff in PACU. SPECIMENS: Bony cuts sent to pathology per hospital protocol. COMPLICATIONS: None. TOURNIQUET TIME: 108 minutes at 300 mmHg. ESTIMATED BLOOD LOSS: 50 mL. DRAINS: Hemovac drain x1. DISPOSITION: The patient was extubated and transferred to PACU in stable condition. IMPLANTS: 1. Medacta GMK posterior stabilized total knee system including size 4 narrow distal femur cemented, size 4 tibial base plate cemented, size 4 polyethelene spacer, 14 mm thickness, size 2 cemented patellar button. 2. Biomet cobalt cement. INDICATIONS FOR SURGERY: The patient is a 67-year-old female with a past medical history significant for hypertension, hypercholesterolemia, diabetes, coronary artery disease with a history of three vessel CABG done in September 2013 who presented to the office for the first time under my care on 12/27/2015 with right much worse than left knee pain for many years. She stated that over the past two years, the knee pain has begun to progressively worsen, and she has had multiple episodes of buckling and giving way with falling. The pain in the right knee was worse. She underwent conservative treatment for bilateral knees including hyaluronic acid series injections in the form of Orthovisc series injections twice, multiple cortisone mixture injections, bracing, physical therapy multiple rounds over the past two years and antiinflammatory medication and cream. After failing conservative treatment, she was indicated for right knee total knee arthroplasty which was carried down on 12/05/2016, and she tolerated the procedure well and recovered very well and was happy with her outcome. She was able to regain her range of motion and ambulatory status and independence without difficulty. Over the course of the 6 months postoperatively, she started to develop significantly worsening left knee pain and underwent two more cortisone mixture injections while the right knee recovered. Finally, she was indicated for left knee total knee arthroplasty, and she was eager to undergo the procedure as soon as possible. She was referred to primary care physician, Dr. Ratliff, for preadmission testing and preoperative medical evaluation/clearance and the procedure was scheduled for 08/29/2017 at [facility]. DESCRIPTION OF PROCEDURE: The patient was identified in the preoperative holding area and the left knee was marked for surgery. Once again as described above, the risks, benefits, and alternatives of the procedure was discussed in length with the patient with the risks included but not limited to infection, neurovascular damage, development of blood clots, development of chronic pain and disability, failure of implants, need for revision surgery, periprosthetic fracture, iatrogenic injury, neurovascular damage, anesthesia reaction, cardiopulmonary collapse, and . After answering all of her questions, stated that she understood the risks and wished to proceed with surgery. After a brief discussion with anesthesia staff, perioperative IV antibiotics in the form of 2 gm Ancef were administered. The patient was taken to the operating room, placed on the well-padded operating room table with all bony prominences and superficial neurovascular structures well-padded. An initial time out was done with the surgeon, anesthesia staff, OR staff, all in agreement with the patient, procedure being done and extremity being operated on. General anesthesia was placed without difficulty or complication. Examination under anesthesia was then carried out. Examination under anesthesia: Left knee with significant crepitance throughout range of motion, range of motion severely limited from 10 degrees lacking extension to 90 degrees flexion arch with a 10-degree flexion contracture. No significant instability with negative anterior drawer, negative posterior drawer, negative Ashley, negative reverse Ashley, negative pivot shift, negative opening to medial or lateral joint line at 0 to 30 degrees varus or valgus stress. No evidence of patellar maltracking or instability but significant patellar femoral crepitance was present. Continuation of procedure, the left lower extremity was prepped and draped in standard sterile fashion after a tourniquet was placed high on the left thigh. A final time out was done with the surgeon, anesthesia staff, OR staff all in agreement with the patient, procedure being done, and the extremity being operated on. The left lower extremity was then prepped and draped in a standard sterile fashion. Left lower extremity was exsanguinated and the tourniquet was inflated to 300 mmHg for a total of 108 minutes. A medial parapatellar approach was then used for this procedure. Incision was made to the skin, down to subcutaneous tissue, down to the level of the retinaculum. The incision was started at three fingerbreadths above the level of the superior pole of the patella and extended down to the tibial tuberosity with slight medial placement to avoid kneeling pain after recovery. Once the medial retinaculum was identified, the quadriceps tendon and the patellar tendon were identified and developed. A medial parapatellar arthrotomy was then carried out starting at the medial aspect of the quadriceps tendon while going in line with the quadriceps fibers down to the superior pole of the patella around the medial aspect of the patella to the medial aspect of the patellar tendon to the level of the tibial tuberosity. This exposed the underlying joint and bloody synovial fluid was expressed from the joint. There was low suspicion of an active infection, but to be safe, a cell count and gram stain were sent as a stat study. The cell count and gram stain both returned negative for infection prior to placement of implants. The fluid was positive for calcium pyrophosphate crystals. This was the same situation for the right knee with the same outcome. We continued the procedure performing an extensive synovectomy as was apparent from the bloody synovial fluid. There was significant anterior hypertrophic synovitis throughout the anterior aspect of the knee extending to the medial and lateral gutters in the suprapatellar pouch and the hypertrophic fat pad with significant inflammation as well. With the use of the Bovie, we maintained good hemostasis and extensive open synovectomy was carried out to allow exposure for the preparation of the distal femur, patella, proximal tibia. This was beyond what was usual and customary as a synovectomy for the total knee arthroplasty as it was significant hypertrophic synovitis. Significant surgical time was to performing this open extensive synovectomy that was beyond what is usual and customary. We turned our attention to the patellar preparation. The patellar was everted with the use of the patellar guide ensuring that 20-mm bone stalk was maintained with the caliper. The patellar cut was made with a saw blade. Once this was carried out with satisfaction, the caliper was used to determine that we had maintained our bone stalk in the patella. Attention was then turned towards the medial release. Periosteum was elevated and all the medial osteophytes were resected. The deep MCL was partially released to allow for the varus deformity to be corrected and to perform our medial release. Once this was performed to satisfaction, attention was then turned towards the preparation of the distal femur. The contact points for the Medacta custom cutting blocks were debrided of any overlying cartilage. The distal femoral cutting guide was then pinned into position and the distal femur cut was carried out. Four in one guide was then pinned into position with 3 degrees external rotation, then in the anterior and posterior cuts, and the anterior and posterior chamfer cuts were carried out. A trial size 4 distal femur was then placed and found to be perfect with the cuts and in good position. Attention was then turned towards completion of the distal femoral preparation to the posterior stabilized implants. The box cut was then completed with the use of the Medacta finishing guide. Once this was completed in satisfaction, attention was then turned towards the proximal tibia. The contact points on the proximal tibia for the custom cutting guides were debrided of overlying cartilage and the proximal tibial guide was pinned into position. The proximal tibial cut was then carried out successfully after the alignment guide was checked to ensure that neutral alignment was restored with the cut. Once the proximal tibial cut was carried out, proximal tibial perforation continued with the proximal reamer, and wedge osteotome. Once the proximal tibial perforation was completed to satisfaction, trial implants were placed consisting of a size 4 proximal tibia, size 4 distal femur, and a 12 mm spacer. Good soft tissue balancing was achieved and full range of motion was obtained with the trial implants. The patellar preparation was completed with the placement of the peg holes. All cut surfaces were copiously irrigated. Any remaining soft tissue including remnant meniscus tissue, ACL or PCL tissue were resected successfully. Extensive synovectomy was carried out again to satisfaction removing any tissue. There were some osteophytes posteriorly at the femoral condyles, which were resected as well. Once all the bony work and preparation was completed with satisfaction, the cut surfaces and the knee joint were copiously irrigated with 1000 mL of normal saline. Cement was mixed and final implants were opened. Proper cement technique was utilized to prepare the distal femur and the proximal tibia, and we started with the placement of the tibial base plate cemented and impacted into position. Distal femur was then cemented into position, and a trial 12-mm polyethylene spacer was placed and axial compression was placed in full extension. The patellar polyethelene button was cemented and impacted into position and compression was held with the Data Maidacta compression device. Once the cement was hardened, the knee was taken to range of motion again and good patellar tracking was confirmed. Decision was made to go with the 14 mm polyethelene posterior stabilized spacer, which was placed into position and clicked into the tibial base plate. Range of motion was confirmed to be full with good stability achieved and no resulting gap imbalances or soft tissue imbalances. Once we were happy with their final product, the tourniquet was deflated with the total tourniquet time of 108 minutes and good hemostasis was achieved. Local anesthetic was placed throughout the capsule. A Hemovac drain was placed. Wound closure was started with reapproximation of the medial reticulum starting at the level of the quadriceps tendon to the medial retinaculum and MPFL reattachment down to the patellar tendon with alternating #1 Vicryl suture and #2 FiberWire nonobservative suture. This was all done after the knee was copiously irrigated again with 1000 mL of normal saline. With the drain in place, the subcutaneous tissue was reapproximated with 2-0 Vicryl followed by love for skin. Sterile dressing were applied followed by layer of sterile cast padding from toes up to the superior thigh followed by a layer of compressive SHIRA wrap from the toes up to the superior thigh. The knee was then fitted in place in a postop hinge knee brace supplied by my office. The patient was then extubated and transferred to PACU in stable condition having tolerated the procedure well. DISPOSITION: The patient will be admitted to the medical service under Dr. Madeline Eugene and Dr. Karl Ratliff until she has recovered. She will be followed by social work, case management, and physical therapy to determine optimal placement for her. She will be started on DVT prophylaxis in the form of Lovenox 40 mg once daily, starting postoperative day #1. She will receive adequate pain control. Once she is medically stable, she will be discharged either home with services or to a facility/rehabilitation. I will monitor her progress as an inpatient to follow her closely. Adam Payton MD
== END 2017-09-02 16:30 | DRG 470 ==
LOC: C.9S 09:06 → UNDOADMIN 09:06 → C.6T 09:06
PROVIDERS: ADMIT Internal Medicine Nephrology; ATTEND Internal Medicine Nephrology
PROC: 0SRD069 Replacement of Left Knee Joint with Oxidized Zirconium on Polyethylene Synthetic Substitute, Cemented, Open Approach (ICD-10-PCS; principal; 2017-08-29 14:15)
DX: M17.12 Unilateral primary osteoarthritis, left knee (principal); E11.9 Type 2 diabetes mellitus without complications; M65.862 Other synovitis and tenosynovitis, left lower leg; M21.162 Varus deformity, not elsewhere classified, left knee; M24.562 Contracture, left knee; I10 Essential (primary) hypertension; I25.10 Atherosclerotic heart disease of native coronary artery without angina pectoris; F17.210 Nicotine dependence, cigarettes, uncomplicated; E78.00 Pure hypercholesterolemia, unspecified; Z95.1 Presence of aortocoronary bypass graft; Z79.4 Long term (current) use of insulin

== ENCOUNTER 2017-11-14 09:40 | Observation (INO) | payer MEDICARE ==
[2017-11-14 09:40] VITALS: BMI 31.1
[2017-11-14] MEDS ORDERED: Sodium Chloride 0.9% 1,000 ML IV ONE (10:11)
--- NOTE | 2017-11-14 10:13 | C.PDOC ---
History Of Present Illness 67 y/o female with PMH HTN, CAD history of Hemorrhoids presents to ED for increased rectum pain persistent since end of August. Patient states she has tried topical cream with no relief. Pt was seen by Dr Dyer last week and scheduled for hemorrhoid resection next week but notes the pain is too much. Patient reports normal bowel movements and denies fever, chills, vomiting, rectal bleeding or abdominal pain. Time Seen by Provider: 11/14/17 09:50 Chief Complaint (Nursing): GI Problem History Per: Patient History/Exam Limitations: no limitations Onset/Duration Of Symptoms: Days Current Symptoms Are (Timing): Still Present Past Medical History Reviewed: Historical Data, Nursing Documentation, Vital Signs Vital Signs: Last Vital Signs Temp 98.9 F 11/14/17 16:45 Pulse 83 11/14/17 16:45 Resp 19 11/14/17 16:45 BP 135/73 11/14/17 16:45 Pulse Ox 98 11/14/17 18:47 - Medical History PMH: Arthritis, CAD, HTN, Hypercholesterolemia Surgical History: CABG (X2) Other Surgeries: Total knee replacement on in 2017 and 08/29/17 - [facility] Procedures (08/29/17) COLONOSCOPY (12/13/14) EXCISION OF RIGHT KNEE JOINT, OPEN APPROACH (03/07/17) EXERCISE TRMT MUSCULOSK LOW BACK/LE W ASSIST EQUIP (09/02/17) EXTIRPATION OF MATTER FROM RIGHT KNEE JOINT, OPEN APPROACH (03/07/17) GAIT TRAINING/AMBULAT TREATMENT USING ASSIST EQUIPMENT (09/02/17) HOME MANAGEMENT TREATMENT USING ASSIST EQUIPMENT (09/02/17) INTRODUCE LOCAL ANESTH IN PERIPH NRV, PLEXI, PERC (03/07/17) RELEASE RIGHT KNEE JOINT, OPEN APPROACH (03/07/17) REPLACE OF R KNEE JT WITH SYNTH SUB, CEMENT, OPEN APPROACH (03/07/17) Family History: States: Diabetes - Social History Hx Alcohol Use: No Hx Substance Use: No Review Of Systems Constitutional: Negative for: Fever, Chills Gastrointestinal: Positive for: Rectal Pain. Negative for: Nausea, Vomiting, Abdominal Pain, Melena Skin: Negative for: Rash Physical Exam - Physical Exam Appears: Non-toxic, No Acute Distress Skin: Warm, Dry, No Rash, Other (b/l healed TKR incision) Head: Atraumatic, Normacephalic Eye(s): bilateral: Normal Inspection, EOMI Nose: Normal Oral Mucosa: Moist Neck: Normal ROM, Supple Cardiovascular: Rhythm Regular Respiratory: Normal Breath Sounds, No Rales, No Rhonchi, No Wheezing Gastrointestinal/Abdominal: Soft, No Tenderness, No Guarding, No Rebound Rectal: Hemorrhoids Back: No CVA Tenderness, No Vertebral Tenderness Extremity: Normal ROM, Capillary Refill (<2 seconds) Neurological/Psych: Oriented x3 ED Course And Treatment - Laboratory Results Result Diagrams: 11/14/17 10:44 11/14/17 10:44 O2 Sat by Pulse Oximetry: 98 (RA) Pulse Ox Interpretation: Normal Progress Note: CAse discussed with Dr. Dyer requested for patient to be NPO , have pre op work up and admitted under his service for surgery with Dr. Ratliff on consult. Dx Thrombosed External Hemorrhoids Disposition - Disposition Disposition: HOSPITALIZED Disposition Time: 11:00 Condition: STABLE - Clinical Impression Clinical Impression: Thrombosed hemorrhoids - PA / [employer] / Resident Statement MD/DO has reviewed & agrees with the documentation as recorded. - Scribe Statement The provider has reviewed the documentation as recorded by the Jeffibjuvenal Salazar All medical record entries made by the Issac were at my direction and personally dictated by me. I have reviewed the chart and agree that the record accurately reflects my personal performance of the history, physical exam, medical decision making, and the department course for this patient. I have also personally directed, reviewed, and agree with the discharge instructions and disposition.
[2017-11-14 10:52] LABS: BASO # 0.1 K/uL (0.0-0.2); BASO % 1.6 % (0.0-2.0); EOS # 0.1 K/uL (0.0-0.7); EOS % 1.4 % (0.0-4.0); HEMOGLOBIN 11.8 g/dL (11.0-16.0); LYMPH # 2.8 K/uL (1.0-4.3); LYMPH % 30.6 % (20.0-40.0); MEAN CELL VOLUME 91.5 fL (81.0-99.0); MEAN CORPUSCULAR HEMOGLOBIN 30.9 pg (27.0-31.0); MEAN CORPUSCULAR HGB CONC 33.7 g/dL (33.0-37.0); MEAN PLATELET VOLUME 11.1 fL (7.2-11.7); MONO # 0.7 K/uL (0.0-0.8); MONO % 7.1 % (0.0-10.0); NEUT # 5.5 K/uL (1.8-7.0); NEUT % 59.3 % (50.0-75.0); RBC 3.82 Mil/uL (3.80-5.20); RED CELL DISTRIBUTION WIDTH 14.7 % (11.5-14.5); WHITE BLOOD COUNT 9.2 K/uL (4.8-10.8)
[2017-11-14 11:03] LABS: CALCIUM 9.6 mg/dl (8.6-10.4); GFR AFRICAN-AMERICAN > 60; GFR NON-AFRICAN AMERICAN > 60
[2017-11-14 11:04] LABS: ALBUMIN 4.4 g/dL (3.5-5.0); ALT/SGPT < 6 U/L (9-52); AST/SGOT 28 U/L (14-36); BLOOD UREA NITROGEN 11 mg/dL (7-17)
[2017-11-14] MEDS ORDERED: Sodium Chloride 0.9% 1,000 ML ONE (11:33)
[2017-11-14 12:00] LABS: SQUAMOUS EPITHIAL 6 /hpf (0-5); URINE BACTERIA RARE (<OCC); URINE BILIRUBIN NEGATIVE (NEGATIVE); URINE BLOOD NEGATIVE (NEGATIVE); URINE CLARITY Hazy (Clear); URINE COLOR Yellow (YELLOW); URINE GLUCOSE (UA) NORMAL (Normal); URINE LEUKOCYTE ESTERASE NEG Leu/uL (Negative); URINE PROTEIN NEGATIVE (NEGATIVE); URINE UROBILINOGEN NORMAL mg/dL (0.2-1.0)
[2017-11-14] MEDS ORDERED: Bupivacaine 0.25% Inj(30mL) IJ ONE (13:07)
[2017-11-14] MEDS ORDERED: Lidocaine 1% Inj (20ml) INFIL ONE (13:08)
[2017-11-14] MEDS ORDERED: Propofol 10 mg/ml Inj (20 ML) ONE (13:20)
[2017-11-14] MEDS ORDERED: ceFAZolin 1 gm in NS 2 GM/200 ML BAG IVPB ONE (13:27)
[2017-11-14] MEDS ORDERED: Bacitracin Ointment 30 GM TUBE ONE (14:03)
[2017-11-14] MEDS ORDERED: Oxycodone/Acetaminophen 5/325 mg Tab PO PRN (14:09)
[2017-11-14] MEDS ORDERED: HYDROmorphone 0.5 mg/0.5 ml ISec IVP PRN (14:27)
--- NOTE | 2017-11-14 15:39 | CP.PCM.CON ---
<Emmanuel Eddy - Last Filed: 11/14/17 15:51> History of Present Illness - History of Present Illness History of Present Illness: 67 year old female with past medical history of HTN, DM, HLD, CAD s/p double bypass surgery and hemorrhoids was sent in by Dr. Dyer for a hemorrhoid resection. Patient has rectal pain for many years. Symptoms associated with this rectal pain include constipation and abdominal discomfort. She was evaluated by Dr. Dyer as outpatient 1 week prior and was scheduled to have this procedure next week. However, patient's pain worsened and prompted patient to come in and have the procedure today. Hospitalist service was consulted for after care s/p surgery. Patient was seen and examined in PACU. Patient was feeling nauseous right after the procedure and it was resolved with Zofran. Otherwise patient denies having fever, chills, headache, shortness of breath, chest pain, abdominal pain, or extremity swelling. PMD: Evy, Cardio: Herberth Henry PMHx: HTN, DM, HLD, CAD s/p double bypass surgery PSHx: double bypass 2013, Right TKR 2017, Left TKR 2018 Allergy: none Social Hx: Current smoker (25py), social alcohol consumption, denies other drug use Family Hx: mother with diabetes Home meds: ASA, Plavix, Toprol, simvastatin, metformin, dulcolax Review of Systems - Review of Systems All systems: reviewed and no additional remarkable complaints except - Constitutional Constitutional: As Per HPI. absent: Anorexia, Chills, Fatigue, Fever - EENT Eyes: As Per HPI. absent: Blind Spots, Decreased Night Vision, Diplopia, Discharge, Itchy Eyes Ears: As Per HPI. absent: Disequilibrium, Dizziness Nose/Mouth/Throat: As Per HPI. absent: Epistaxis, Nasal Obstruction, Nasal Trauma, Nose Pain - Cardiovascular Cardiovascular: As Per HPI. absent: Acrocyanosis, Chest Pain, Chest Pain at Rest, Chest Pain with Activity, Edema, Syncope - Respiratory Respiratory: As Per HPI. absent: Cough, Dyspnea, Wheezing - Gastrointestinal Gastrointestinal: As Per HPI, Bloating, Constipation, Nausea. absent: Vomiting - Genitourinary Genitourinary: As Per HPI. absent: Change in Urinary Stream, Difficulty Urinating, Dysuria, Flank Pain - Reproductive: Female Reproductive:Female: As Per HPI - Musculoskeletal Musculoskeletal: As Per HPI. absent: Abnormal Gait, Arthralgias, Deformity, Joint Swelling - Integumentary Integumentary: As Per HPI. absent: Acne, Alopecia, Bleeding Lesions - Neurological Neurological: As Per HPI. absent: Dizziness, Numbness, Syncope, Tremor - Psychiatric Psychiatric: As Per HPI. absent: Anxiety, Depression - Endocrine Endocrine: As Per HPI. absent: Change in Body Appearance - Hematologic/Lymphatic Hematologic: As Per HPI Past Patient History - Infectious Disease Hx of Infectious Diseases: None - Tetanus Immunizations Tetanus Immunization: Unknown - Past Medical History & Family History Past Medical History?: Yes - Past Social History Smoking Status: Current Some Days Smoker - CARDIAC Hx Hypercholesterolemia: Yes Hx Hypertension: Yes - PULMONARY Hx Respiratory Disorders: No - NEUROLOGICAL Hx Neurological Disorder: No - HEENT Hx Cataracts: Yes - RENAL Hx Chronic Kidney Disease: No - ENDOCRINE/METABOLIC Hx Endocrine Disorders: Yes Hx Diabetes Mellitus Type 2: Yes - HEMATOLOGICAL/ONCOLOGICAL Hx Human Immunodeficiency Virus (HIV): No - INTEGUMENTARY Hx Dermatological Problems: No - MUSCULOSKELETAL/RHEUMATOLOGICAL Hx Arthritis: Yes - GASTROINTESTINAL Hx Gastrointestinal Disorders: Yes Hx Hemorrhoids: Yes - GENITOURINARY/GYNECOLOGICAL Hx Genitourinary Disorders: No - PSYCHIATRIC Hx Substance Use: No - SURGICAL HISTORY Hx Coronary Artery Bypass Graft: Yes (X2) - ANESTHESIA Hx Anesthesia: Yes Hx Anesthesia Reactions: No Hx Malignant Hyperthermia: No Meds Allergies/Adverse Reactions: Allergies Allergy/AdvReac Type Severity Reaction Status Date / Time No Known Allergies Allergy Verified 11/14/17 09:46 - Medications Medications: Current Medications Docusate Sodium (Colace) 100 mg PO BID YANIRA Enoxaparin Sodium (Lovenox) 30 mg SC 1000,2200 YANIRA Hydromorphone HCl (Dilaudid) 0.5 mg IVP Q10M PRN PRN Reason: Pain, severe (8-10) Stop: 11/14/17 16:28 Sodium Chloride (Sodium Chloride 0.9%) 1,000 mls @ 100 mls/hr IV .Q10H ONE Stop: 11/14/17 20:10 Last Admin: 11/14/17 10:30 Dose: 100 mls/hr Ondansetron HCl (Zofran Inj) 4 mg IVP ONCE PRN PRN Reason: Nausea/Vomiting Stop: 11/14/17 16:28 Last Admin: 11/14/17 15:08 Dose: 4 mg Oxycodone/Acetaminophen (Percocet 5/325 Mg Tab) 2 tab PO Q4H PRN PRN Reason: pain Stop: 11/17/17 14:10 Physical Exam - Constitutional Appears: Well, Non-toxic, No Acute Distress Additional comments: obese female - Head Exam Head Exam: ATRAUMATIC, NORMOCEPHALIC - Eye Exam Eye Exam: EOMI, Normal appearance, PERRL - ENT Exam ENT Exam: Mucous Membranes Moist, Normal Exam. absent: Mucous Membranes Dry - Neck Exam Neck exam: Positive for: Normal Inspection. Negative for: Tenderness - Respiratory Exam Respiratory Exam: Clear to Auscultation Bilateral, NORMAL BREATHING PATTERN. absent: Rhonchi, Wheezes, Respiratory Distress - Cardiovascular Exam Cardiovascular Exam: REGULAR RHYTHM, +S1, +S2. absent: RRR, Rubs, Systolic Murmur - GI/Abdominal Exam GI & Abdominal Exam: Normal Bowel Sounds, Soft. absent: Tenderness - Extremities Exam Extremities exam: Positive for: normal inspection, pedal pulses present. Negative for: joint swelling, tenderness - Back Exam Back exam: absent: CVA tenderness (L), CVA tenderness (R), paraspinal tenderness - Neurological Exam Neurological exam: Alert, CN II-XII Intact, Oriented x3 - Psychiatric Exam Psychiatric exam: Normal Affect, Normal Mood - Skin Skin Exam: Dry, Normal Color, Warm Results - Vital Signs Recent Vital Signs: Last Vital Signs Temp 98.1 F 11/14/17 14:25 Pulse 82 11/14/17 15:15 Resp 12 11/14/17 15:15 BP 150/74 11/14/17 15:15 Pulse Ox 100 11/14/17 15:15 - Labs Result Diagrams: 11/14/17 10:44 11/14/17 10:44 Labs: Laboratory Results - last 24 hr 11/14/17 11/14/17 11/14/17 10:18 10:44 10:44 WBC 9.2 RBC 3.82 Hgb 11.8 Hct 35.0 MCV 91.5 MCH 30.9 MCHC 33.7 RDW 14.7 H Plt Count 168 MPV 11.1 Neut % (Auto) 59.3 Lymph % (Auto) 30.6 [place] % (Auto) 7.1 Eos % (Auto) 1.4 Baso % (Auto) 1.6 Neut # (Auto) 5.5 Lymph # (Auto) 2.8 [place] # (Auto) 0.7 Eos # (Auto) 0.1 Baso # (Auto) 0.1 Sodium 140 Potassium 4.8 Chloride 105 Carbon Dioxide 22 Anion Gap 17 BUN 11 Creatinine 0.6 L Est GFR ( Amer) > 60 Est GFR (Non-Af Amer) > 60 POC Glucose (mg/dL) 223 H Random Glucose 180 H Calcium 9.6 Total Bilirubin 0.8 AST 28 ALT < 6 L D Alkaline Phosphatase 88 Total Protein 8.6 H Albumin 4.4 Globulin 4.2 H Albumin/Globulin Ratio 1.0 Urine Color Urine Clarity Urine pH Ur Specific [place] Urine Protein Urine Glucose (UA) Urine Ketones Urine Blood Urine Nitrate Urine Bilirubin Urine Urobilinogen Ur Leukocyte Esterase Urine WBC (Auto) Urine RBC (Auto) Ur Squamous Epith Cells Urine Bacteria Blood Type Antibody Screen 11/14/17 11/14/17 11/14/17 11:43 12:00 15:02 WBC RBC Hgb Hct MCV MCH MCHC RDW Plt Count MPV Neut % (Auto) Lymph % (Auto) [place] % (Auto) Eos % (Auto) Baso % (Auto) Neut # (Auto) Lymph # (Auto) [place] # (Auto) Eos # (Auto) Baso # (Auto) Sodium Potassium Chloride Carbon Dioxide Anion Gap BUN Creatinine Est GFR ( Amer) Est GFR (Non-Af Amer) POC Glucose (mg/dL) 150 H Random Glucose Calcium Total Bilirubin AST ALT Alkaline Phosphatase Total Protein Albumin Globulin Albumin/Globulin Ratio Urine Color Yellow Urine Clarity Hazy Urine pH 5.0 Ur Specific [place] 1.025 Urine Protein Negative Urine Glucose (UA) Normal Urine Ketones Negative Urine Blood Negative Urine Nitrate Negative Urine Bilirubin Negative Urine Urobilinogen Normal Ur Leukocyte Esterase Neg Urine WBC (Auto) 1 Urine RBC (Auto) 1 Ur Squamous Epith Cells 6 H Urine Bacteria Rare Blood Type B NEGATIVE Antibody Screen Negative Assessment & Plan - Assessment and Plan (Free Text) Assessment: Painful rectal polyps -S/P excision of rectal polpys, external sphincteretomy POD #0 -IVF NS 100ml/hr -Dilaudid 0.5mg IV prn -Zofran prn -Lovenox 30mg BID -Further management per surgery team DM2 -continue Metformin 1000mg PO BID -Accucheck ACHS -Hypoglycemia protocol -CCD HTN -BP stable -continue Metoprolol Hypercholesteremia -Crestor 5mg CAD -continue Metoprolol and Crestor -Hold Plavix or ASA, awaiting to hear back from surgery team to restart Prophylaxis -Lovenox 30mg BID -SCD -GI prophylaxis not indicated <Rebecca Wallace V - Last Filed: 11/15/17 18:16> Results - Vital Signs Recent Vital Signs: Last Vital Signs Temp 99.1 F 11/15/17 08:00 Pulse 87 11/15/17 08:00 Resp 20 11/15/17 08:00 BP 129/73 11/15/17 08:00 Pulse Ox 96 11/15/17 08:00 - Labs Result Diagrams: 11/15/17 07:12 11/15/17 07:12 Labs: Laboratory Results - last 24 hr 11/14/17 11/15/17 11/15/17 21:33 07:06 07:12 WBC 9.4 RBC 3.31 L Hgb 10.2 L Hct 30.4 L MCV 91.9 MCH 30.8 MCHC 33.5 RDW 14.5 Plt Count 137 MPV 11.4 Neut % (Auto) 61.8 Lymph % (Auto) 28.5 [place] % (Auto) 7.9 Eos % (Auto) 1.4 Baso % (Auto) 0.4 Neut # (Auto) 5.8 Lymph # (Auto) 2.7 [place] # (Auto) 0.7 Eos # (Auto) 0.1 Baso # (Auto) 0.0 Sodium Potassium Chloride Carbon Dioxide Anion Gap BUN Creatinine Est GFR ( Amer) Est GFR (Non-Af Amer) POC Glucose (mg/dL) 174 H 147 H Random Glucose Calcium 11/15/17 07:12 WBC RBC Hgb Hct MCV MCH MCHC RDW Plt Count MPV Neut % (Auto) Lymph % (Auto) [place] % (Auto) Eos % (Auto) Baso % (Auto) Neut # (Auto) Lymph # (Auto) [place] # (Auto) Eos # (Auto) Baso # (Auto) Sodium 142 Potassium 3.9 Chloride 109 H Carbon Dioxide 23 Anion Gap 14 BUN 10 Creatinine 0.7 Est GFR ( Amer) > 60 Est GFR (Non-Af Amer) > 60 POC Glucose (mg/dL) Random Glucose 129 H Calcium 8.8 Attending/Attestation - Attestation I have personally seen and examined this patient.: Yes I have fully participated in the care of the patient.: Yes I have reviewed all pertinent clinical information: Yes Notes (Text): This is late computer entry for 11/14/17. Patient seen, examined and case discussed with day-time resident. Patient seen in the PACU status post procedure. Surgery is requesting medical management status post surgery. Anticoagulation per surgery Pain management per surgery. Assessment/Plan 1) Painful rectal polyps * General surgery (Dr. Dyer) on the case-->primary * Surgery decision making including preoperative/intraoperative/postoperative per surgery * S/P full thickness and partial thickeness excision of rectal polyps X3, hemorrhoidectomy with sphincterectomy and repair of rectal blood vessel POD #0 * Per surgery, * NS 100ml/hr * Percocet 5/325 2 tab PO Q4H PRN pain * Surgery restarted Lovenox 30mg subq BID in AM * Further management per surgery team 2) DM2 * continue Metformin 1000mg PO BID * Accucheck ACHS * Hypoglycemia protocol * CCD 3) Hypertension * vitals stable * Toprol XL 100mg PO daily 4) Hypercholesteremia * Crestor 5mg PO qHS 5) Coronary Artery Disease; history of CABG * continue Metoprolol 100mg PO daily * continue Crestor 5mg PO qHS * On hold Plavix and ASA since last week-->will need to follow-up with surgery when to restart post surgery 6) Prophylaxis * Anticoagulation restart per surgery-->Lovenox 30mg BID * SCD b/l * GI prophylaxis not indicated
[2017-11-14] MEDS ORDERED: Dextrose 50% SYRINGE Inj (50 ml) IVP PRN (15:53)
[2017-11-14] MEDS ORDERED: Glucagon Recombinant 1 mg Inj IM PRN (15:53)
[2017-11-14] MEDS ORDERED: Lactated Ringer's 1,000 ML IV ONE (16:45)
--- NOTE | 2017-11-14 17:07 | CP.PCM.CON ---
History of Present Illness - History of Present Illness History of Present Illness: 67 year old female with past medical history of HTN, DM, HLD, CAD s/p double bypass surgery and hemorrhoids was sent in by Dr. Dyer for a hemorrhoid resection. She was scheduled to have this procedure next week. However, patient's pain worsened and prompted patient to come in and have the procedure today. PMD: Evy, Cardio: Herberth Henry PMHx: HTN, DM, HLD, CAD s/p double bypass surgery PSHx: double bypass 2013, Right TKR 2017, Left TKR 2018 Allergy: none Social Hx: Current smoker (25py), social alcohol consumption, denies other drug use Family Hx: mother with diabetes Home meds: ASA, Plavix, Toprol, simvastatin, metformin, dulcolax Review of Systems - Review of Systems All systems: reviewed and no additional remarkable complaints except - Constitutional Constitutional: As Per HPI. absent: Anorexia, Chills, Fatigue, Fever - EENT Eyes: As Per HPI. absent: Blind Spots, Decreased Night Vision, Diplopia, Discharge, Itchy Eyes Ears: As Per HPI. absent: Disequilibrium, Dizziness Nose/Mouth/Throat: As Per HPI. absent: Epistaxis, Nasal Obstruction, Nasal Trauma, Nose Pain - Cardiovascular Cardiovascular: As Per HPI. absent: Acrocyanosis, Chest Pain, Chest Pain at Rest, Chest Pain with Activity, Edema, Syncope - Respiratory Respiratory: As Per HPI. absent: Cough, Dyspnea, Wheezing - Gastrointestinal Gastrointestinal: As Per HPI, Bloating, Constipation, Nausea. absent: Vomiting - Genitourinary Genitourinary: As Per HPI. absent: Change in Urinary Stream, Difficulty Urinating, Dysuria, Flank Pain - Reproductive: Female Reproductive:Female: As Per HPI - Musculoskeletal Musculoskeletal: As Per HPI. absent: Abnormal Gait, Arthralgias, Deformity, Joint Swelling - Integumentary Integumentary: As Per HPI. absent: Acne, Alopecia, Bleeding Lesions - Neurological Neurological: As Per HPI. absent: Dizziness, Numbness, Syncope, Tremor - Psychiatric Psychiatric: As Per HPI. absent: Anxiety, Depression - Endocrine Endocrine: As Per HPI. absent: Change in Body Appearance - Hematologic/Lymphatic Hematologic: As Per HPI Past Patient History - Infectious Disease Hx of Infectious Diseases: None - Tetanus Immunizations Tetanus Immunization: Unknown - Past Medical History & Family History Past Medical History?: Yes - Past Social History Smoking Status: Current Some Days Smoker - CARDIAC Hx Hypercholesterolemia: Yes Hx Hypertension: Yes - PULMONARY Hx Respiratory Disorders: No - NEUROLOGICAL Hx Neurological Disorder: No - HEENT Hx Cataracts: Yes - RENAL Hx Chronic Kidney Disease: No - ENDOCRINE/METABOLIC Hx Endocrine Disorders: Yes Hx Diabetes Mellitus Type 2: Yes - HEMATOLOGICAL/ONCOLOGICAL Hx Human Immunodeficiency Virus (HIV): No - INTEGUMENTARY Hx Dermatological Problems: No - MUSCULOSKELETAL/RHEUMATOLOGICAL Hx Arthritis: Yes - GASTROINTESTINAL Hx Gastrointestinal Disorders: Yes Hx Hemorrhoids: Yes - GENITOURINARY/GYNECOLOGICAL Hx Genitourinary Disorders: No - PSYCHIATRIC Hx Substance Use: No - SURGICAL HISTORY Hx Coronary Artery Bypass Graft: Yes (X2) - ANESTHESIA Hx Anesthesia: Yes Hx Anesthesia Reactions: No Hx Malignant Hyperthermia: No Meds Allergies/Adverse Reactions: Allergies Allergy/AdvReac Type Severity Reaction Status Date / Time No Known Allergies Allergy Verified 11/14/17 09:46 - Medications Medications: Current Medications Dextrose (Dextrose 50% Inj) 0 ml IVP .STAT PRN; Protocol PRN Reason: Hypoglycemia Protocol Dextrose (Glutose 15) 0 gm PO .ONCE PRN; Protocol PRN Reason: Hypoglycemia Protocol Docusate Sodium (Colace) 100 mg PO BID YANIRA Docusate Sodium (Colace) 100 mg PO BID PRN PRN Reason: Constipation Enoxaparin Sodium (Lovenox) 30 mg SC 1000,2200 YANIRA Ergocalciferol (Drisdol 50,000 Intl Units Cap) 1 cap PO QWK YANIRA Glucagon (Glucagen Diagnostic Kit) 0 mg IM .STAT PRN; Protocol PRN Reason: Hypoglycemia Protocol Sodium Chloride (Sodium Chloride 0.9%) 1,000 mls @ 100 mls/hr IV .Q10H ONE Stop: 11/14/17 20:10 Last Admin: 11/14/17 10:30 Dose: 100 mls/hr Dextrose (Dextrose 5% In Water 1000 Ml) 1,000 mls @ 0 mls/hr IV .Q0M PRN; Protocol; Per Protocol PRN Reason: Hypoglycemia Protocol Metformin HCl (Glucophage) 1,000 mg PO BID [facility] Metoprolol Succinate (Toprol Xl) 100 mg PO DAILY [facility] Multivitamins (Hexavitamin) 1 tab PO DAILY YANIRA Oxycodone/Acetaminophen (Percocet 5/325 Mg Tab) 2 tab PO Q4H PRN PRN Reason: pain Stop: 11/17/17 14:10 Rosuvastatin Calcium (Crestor) 5 mg PO HS YANIRA Physical Exam - Constitutional Appears: Chronically Ill - Head Exam Head Exam: ATRAUMATIC - Eye Exam Eye Exam: PERRL - ENT Exam ENT Exam: Mucous Membranes Dry - Neck Exam Neck exam: Negative for: Lymphadenopathy - Respiratory Exam Respiratory Exam: Decreased Breath Sounds - Cardiovascular Exam Cardiovascular Exam: REGULAR RHYTHM - GI/Abdominal Exam GI & Abdominal Exam: Diminished Bowel Sounds - Rectal Exam Rectal Exam: Deferred - Exam Exam: NORMAL INSPECTION - Extremities Exam Extremities exam: Negative for: pedal edema - Back Exam Back exam: absent: CVA tenderness (L), CVA tenderness (R) - Neurological Exam Neurological exam: Alert, CN II-XII Intact, Oriented x3, Reflexes Normal - Psychiatric Exam Psychiatric exam: Normal Mood - Skin Skin Exam: Dry Results - Vital Signs Recent Vital Signs: Last Vital Signs Temp 98.1 F 11/14/17 14:25 Pulse 80 11/14/17 15:29 Resp 15 11/14/17 15:29 BP 137/75 11/14/17 15:29 Pulse Ox 100 11/14/17 15:29 - Labs Result Diagrams: 11/14/17 10:44 11/14/17 10:44 Labs: Laboratory Results - last 24 hr 11/14/17 11/14/17 11/14/17 10:18 10:44 10:44 WBC 9.2 RBC 3.82 Hgb 11.8 Hct 35.0 MCV 91.5 MCH 30.9 MCHC 33.7 RDW 14.7 H Plt Count 168 MPV 11.1 Neut % (Auto) 59.3 Lymph % (Auto) 30.6 [place] % (Auto) 7.1 Eos % (Auto) 1.4 Baso % (Auto) 1.6 Neut # (Auto) 5.5 Lymph # (Auto) 2.8 [place] # (Auto) 0.7 Eos # (Auto) 0.1 Baso # (Auto) 0.1 Sodium 140 Potassium 4.8 Chloride 105 Carbon Dioxide 22 Anion Gap 17 BUN 11 Creatinine 0.6 L Est GFR ( Amer) > 60 Est GFR (Non-Af Amer) > 60 POC Glucose (mg/dL) 223 H Random Glucose 180 H Calcium 9.6 Total Bilirubin 0.8 AST 28 ALT < 6 L D Alkaline Phosphatase 88 Total Protein 8.6 H Albumin 4.4 Globulin 4.2 H Albumin/Globulin Ratio 1.0 Urine Color Urine Clarity Urine pH Ur Specific [place] Urine Protein Urine Glucose (UA) Urine Ketones Urine Blood Urine Nitrate Urine Bilirubin Urine Urobilinogen Ur Leukocyte Esterase Urine WBC (Auto) Urine RBC (Auto) Ur Squamous Epith Cells Urine Bacteria Blood Type Antibody Screen 11/14/17 11/14/17 11/14/17 11:43 12:00 15:02 WBC RBC Hgb Hct MCV MCH MCHC RDW Plt Count MPV Neut % (Auto) Lymph % (Auto) [place] % (Auto) Eos % (Auto) Baso % (Auto) Neut # (Auto) Lymph # (Auto) [place] # (Auto) Eos # (Auto) Baso # (Auto) Sodium Potassium Chloride Carbon Dioxide Anion Gap BUN Creatinine Est GFR ( Amer) Est GFR (Non-Af Amer) POC Glucose (mg/dL) 150 H Random Glucose Calcium Total Bilirubin AST ALT Alkaline Phosphatase Total Protein Albumin Globulin Albumin/Globulin Ratio Urine Color Yellow Urine Clarity Hazy Urine pH 5.0 Ur Specific [place] 1.025 Urine Protein Negative Urine Glucose (UA) Normal Urine Ketones Negative Urine Blood Negative Urine Nitrate Negative Urine Bilirubin Negative Urine Urobilinogen Normal Ur Leukocyte Esterase Neg Urine WBC (Auto) 1 Urine RBC (Auto) 1 Ur Squamous Epith Cells 6 H Urine Bacteria Rare Blood Type B NEGATIVE Antibody Screen Negative 11/14/17 16:29 WBC RBC Hgb Hct MCV MCH MCHC RDW Plt Count MPV Neut % (Auto) Lymph % (Auto) [place] % (Auto) Eos % (Auto) Baso % (Auto) Neut # (Auto) Lymph # (Auto) [place] # (Auto) Eos # (Auto) Baso # (Auto) Sodium Potassium Chloride Carbon Dioxide Anion Gap BUN Creatinine Est GFR ( Amer) Est GFR (Non-Af Amer) POC Glucose (mg/dL) 120 H Random Glucose Calcium Total Bilirubin AST ALT Alkaline Phosphatase Total Protein Albumin Globulin Albumin/Globulin Ratio Urine Color Urine Clarity Urine pH Ur Specific [place] Urine Protein Urine Glucose (UA) Urine Ketones Urine Blood Urine Nitrate Urine Bilirubin Urine Urobilinogen Ur Leukocyte Esterase Urine WBC (Auto) Urine RBC (Auto) Ur Squamous Epith Cells Urine Bacteria Blood Type Antibody Screen Assessment & Plan - Assessment and Plan (Free Text) Assessment: thrombosed hemorrhoid hx of recurrent SSTI's DM CAD HTN OA s/p CABG cont IV rx as per dr Dyer
[2017-11-14] MEDS: Enoxaparin 30 mg Syringe SC SCH (21:36)
[2017-11-15 01:06] VITALS: RESP 20; O2SAT 96
--- NOTE | 2017-11-15 02:21 | OP ---
PROCEDURE DATE: 11/14/2017 PREOPERATIVE DIAGNOSIS: Rectal pain and bleeding. POSTOPERATIVE DIAGNOSES: Rectal pain and bleeding, rectal polyps x3, hemorrhoids, anal fissure and bleeding rectal blood vessel. PROCEDURE PERFORMED Full thickness and partial thickness excision of rectal polyps x3, hemorrhoidectomy with sphincterotomy and repair of rectal blood vessel. SURGEON Doni Dyer MD ANESTHESIA: General. BLOOD LOSS: 40 mL. POSTOPERATIVE CONDITION: Stable. INDICATIONS FOR SURGERY This is a 67-year-old female with rectal pain and bleeding, admitted through the emergency room brought to the OR for examination under anesthesia and definitive treatment. DESCRIPTION OF PROCEDURE: The patient was taken to the operating room. General anesthesia was administered, and she was placed in the prone Jackknife position. The buttocks were taped open. The rectal area was prepped and draped. Three rectal polyps were encountered and excised, two full thickness and one partial thickness and closed with a Monocryl. A right posterior hemorrhoid was removed and during the removal, the internal sphincter was divided due to an anterior midline anal fissure. The incision was closed with Monocryl. A bleeding blood vessel was repaired. The patient tolerated the procedure well, returned to recovery room in stable condition. Doni Dyer MD
[2017-11-15 07:32] LABS: BASO % 0.4 % (0.0-2.0); EOS # 0.1 K/uL (0.0-0.7); EOS % 1.4 % (0.0-4.0); HEMOGLOBIN 10.2 g/dL (11.0-16.0); LYMPH # 2.7 K/uL (1.0-4.3); LYMPH % 28.5 % (20.0-40.0); MEAN CELL VOLUME 91.9 fL (81.0-99.0); MEAN CORPUSCULAR HEMOGLOBIN 30.8 pg (27.0-31.0); MEAN CORPUSCULAR HGB CONC 33.5 g/dL (33.0-37.0); MEAN PLATELET VOLUME 11.4 fL (7.2-11.7); MONO # 0.7 K/uL (0.0-0.8); MONO % 7.9 % (0.0-10.0); NEUT # 5.8 K/uL (1.8-7.0); NEUT % 61.8 % (50.0-75.0); RBC 3.31 Mil/uL (3.80-5.20); RED CELL DISTRIBUTION WIDTH 14.5 % (11.5-14.5); WHITE BLOOD COUNT 9.4 K/uL (4.8-10.8)
[2017-11-15 07:41] LABS: BLOOD UREA NITROGEN 10 mg/dL (7-17); CALCIUM 8.8 mg/dl (8.6-10.4); GFR AFRICAN-AMERICAN > 60; GFR NON-AFRICAN AMERICAN > 60
[2017-11-15] MEDS ORDERED: Metoprolol Succinate 100 mg XL Tab PO SCH (10:00)
[2017-11-15] MEDS ORDERED: Ergocalciferol 50,000 Intl Units Cap PO SCH (10:00)
[2017-11-15] MEDS ORDERED: Multiple Vitamins Tab PO SCH (10:00)
[2017-11-15] MEDS: Enoxaparin 30 mg Syringe SC SCH (10:28)
--- NOTE | 2017-11-15 11:25 | CP.PCM.PN ---
<Emmanuel Eddy - Last Filed: 11/15/17 11:43> Subjective - Date & Time of Evaluation Date of Evaluation: 11/15/17 Time of Evaluation: 09:00 - Subjective Subjective: Medicine progress note for Dr. Wallace Patient seen and examined at bedside. No acute events reported overnight. Patient is resting in bed comfortably. She expressed interest of going home today so she can travel to [place] to see her brother. Patient denies having fever, chills, headache, shortness of breath, chest pain, nausea, vomiting or urinary complaints. Objective - Vital Signs/Intake and Output Vital Signs (last 24 hours): Temp Pulse Resp BP Pulse Ox 99.3 F 89 20 120/70 96 11/15/17 00:00 11/15/17 00:00 11/15/17 00:00 11/15/17 00:00 11/15/17 00:00 - Labs Labs: 11/15/17 07:12 11/15/17 07:12 - Additional Findings Additional findings: obese female - Head Exam Head Exam: ATRAUMATIC, NORMOCEPHALIC - Eye Exam Eye Exam: EOMI, Normal appearance, PERRL - ENT Exam ENT Exam: Mucous Membranes Moist, Normal Exam. absent: Mucous Membranes Dry - Neck Exam Neck exam: Positive for: Normal Inspection. Negative for: Tenderness - Respiratory Exam Respiratory Exam: Clear to Auscultation Bilateral, NORMAL BREATHING PATTERN. absent: Rhonchi, Wheezes, Respiratory Distress - Cardiovascular Exam Cardiovascular Exam: REGULAR RHYTHM, +S1, +S2. absent: RRR, Rubs, Systolic Murmur - GI/Abdominal Exam GI & Abdominal Exam: Normal Bowel Sounds, Soft. absent: Tenderness - Extremities Exam Extremities exam: Positive for: normal inspection, pedal pulses present. Negative for: joint swelling, tenderness - Back Exam Back exam: absent: CVA tenderness (L), CVA tenderness (R), paraspinal tenderness - Neurological Exam Neurological exam: Alert, CN II-XII Intact, Oriented x3 - Psychiatric Exam Psychiatric exam: Normal Affect, Normal Mood - Skin Skin Exam: Dry, Normal Color, Warm Assessment and Plan - Assessment and Plan (Free Text) Assessment: Painful rectal polyps -S/P excision of rectal polpys, external sphincteretomy POD #0 -IVF NS 100ml/hr -Dilaudid 0.5mg IV prn -Zofran prn -Lovenox 30mg BID -Further management per surgery team DM2 -continue Metformin 1000mg PO BID -Accucheck ACHS -Hypoglycemia protocol -CCD HTN -BP stable -continue Metoprolol -Smoking cessation was strongly advised Hypercholesteremia -Crestor 5mg CAD s/p CABG 2013 -continue Metoprolol and Crestor -Patient may restart ASA and plavix Prophylaxis -Lovenox 30mg BID -SCD -GI prophylaxis not indicated Patient is be to discharged per Dr. Dyer <Rebecca Wallace V - Last Filed: 11/15/17 18:18> Objective - Vital Signs/Intake and Output Vital Signs (last 24 hours): Temp Pulse Resp BP Pulse Ox 99.1 F 87 20 129/73 96 11/15/17 08:00 11/15/17 08:00 11/15/17 08:00 11/15/17 08:00 11/15/17 08:00 Intake and Output: 11/15/17 11/15/17 06:59 18:59 Intake Total 200 Balance 200 - Labs Labs: 11/15/17 07:12 11/15/17 07:12 Attending/Attestation - Attestation I have personally seen and examined this patient.: Yes I have fully participated in the care of the patient.: Yes I have reviewed all pertinent clinical information, including history, physical exam and plan: Yes Notes (Text): Patient seen, examined and case discussed with day-time resident. Patient seen this morning. Patient denies acute complaints. Patient reports she is doing well and eager to leave the hospital. Resident has spoken with Dr. Dyer who confirm that the patient can restart Aspirin and Plavix. Discharge per surgery; Discharge instructions per surgery. Assessment/Plan 1) Painful rectal polyps * General surgery (Dr. Dyer) on the case-->primary * Surgery decision making including preoperative/intraoperative/postoperative per surgery * S/P full thickness and partial thickeness excision of rectal polyps X3, hemorrhoidectomy with sphincterectomy and repair of rectal blood vessel POD #1 * Per surgery, * NS 100ml/hr * Percocet 5/325 2 tab PO Q4H PRN pain * Surgery restarted Lovenox 30mg subq BID in AM * Further management per surgery team 2) DM2 * continue Metformin 1000mg PO BID * Accucheck ACHS * Hypoglycemia protocol * CCD 3) Hypertension * vitals stable * Toprol XL 100mg PO daily 4) Hypercholesteremia * Crestor 5mg PO qHS 5) Coronary Artery Disease; history of CABG * continue Metoprolol 100mg PO daily * continue Crestor 5mg PO qHS * On hold Plavix and ASA since last week-->per surgery, patient may restart 6) Prophylaxis * Anticoagulation restart per surgery-->Lovenox 30mg BID * SCD b/l * GI prophylaxis not indicated
[2017-11-15 17:13] VITALS: BP 129/73; PULSE 87; TEMP 99.1
== END 2017-11-15 10:50 | disposition home or self-care (01) ==
LOC: C.ER 09:40 → C.9E 10:14 → C.9S 14:27 → C.3T 17:09
PROVIDERS: ADMIT Surgery; ATTEND Surgery
DX: K62.1 Rectal polyp (principal); K62.5 Hemorrhage of anus and rectum; I10 Essential (primary) hypertension; I25.10 Atherosclerotic heart disease of native coronary artery without angina pectoris
CPT/HCPCS: 36415; 46255; 46922; 80048; 80053; 81001; 82948; 85025; 86850; 86900; 88305; 96360; 99285; G0378; J0690; J1650; J1885; J2001; J2405; J2704; J2765; J3010; J7040; J7120